=== PATIENT | male | born 1965 | race Caucasian/White ===

== ENCOUNTER 2016-12-02 07:55 | Emergency (ER) | payer OTHER, MEDICAID ==
[~2016-12-02] VITALS: Ht 162.6 cm; Wt 68.9 kg
[~2016-12-02 07:55] MED LIST: ACET325T9 PO; AMLO5TAB2 PO; Acetaminophen RC; Amoxicillin/Potassium Clav FT; CHLO25TA4 PO; Enoxaparin Sodium SQ; FAMO-63 FT; FLUC100T7 FT; bp med
[2016-12-02 08:05] VITALS: BP 168/93
--- NOTE | 2016-12-02 08:18 | PHYS DOC ---
Past Medical History Past Medical History: Anxiety, Depression, Hypertension, Hepatitis, Other Additional Past Medical Histor: Cervical vertebra fracture, intracranial hemorrhage, zygomatic fracure. Past Surgical History: Cholecystectomy, Other Additional Past Surgical Histo: Gastrostomy 06/09 Alcohol Use: None Additional Information: Pt denies alcohol Drug Use: Marijuana Adult General Chief Complaint Chief Complaint: SHORTNESS OF BREATH HPI HPI 51 year-old male who's had some shortness of breath for the last 4-5 days and a cough for the last 3-4 weeks. He denies any chest pain whatsoever with his symptoms. He does state he is significantly congested. He has possible history of hypertension and is on medications for this. He denies any other significant health problems. He states he smokes and occasional marijuana joint but no other drug use. He denies any tobacco use. Patient is speaking in complete sentences and in no acute distress and he saturates at 99% on room air. Review of Systems Review of Systems Constitutional: Denies fever or chills [] Eyes: Denies change in visual acuity, redness, or eye pain [] HENT: Denies nasal congestion or sore throat [] Respiratory: Has cough, has shortness of breath [] Cardiovascular: No additional information not addressed in HPI [] GI: Denies abdominal pain, nausea, vomiting, bloody stools or diarrhea [] : Denies dysuria or hematuria [] Musculoskeletal: Denies back pain or joint pain [] Integument: Denies rash or skin lesions [] Neurologic: Denies headache, focal weakness or sensory changes [] Endocrine: Denies polyuria or polydipsia [] Current Medications Current Medications Current Medications Medications (Trade) Dose Ordered Sig/[facility] Start Time Stop Time Status Last Admin Dose Admin Albuterol/ Ipratropium (Duoneb) 3 ml 1X ONCE 12/02/16 08:30 12/02/16 08:31 12/02/16 08:23 3 ML Allergies Allergies Allergies Coded Allergies Type Severity Reaction Last Updated Verified No Known Drug Allergies 02/17/16 No Physical Exam Physical Exam Constitutional: Well developed, well nourished, no acute distress, non-toxic appearance. [] HENT: Normocephalic, atraumatic, bilateral external ears normal, oropharynx moist, no oral exudates, nose normal. [] Eyes: PERRLA, EOMI, conjunctiva normal, no discharge. [] Neck: Normal range of motion, no tenderness, supple, no stridor. [] Cardiovascular:Heart rate regular rhythm, no murmur [] Lungs & Thorax: Bilateral breath sounds clear to auscultation [] Abdomen: Bowel sounds normal, soft, no tenderness, no masses, no pulsatile masses. [] Skin: Warm, dry, no erythema, no rash. [] Back: No tenderness, no CVA tenderness. [] Extremities: No tenderness, no cyanosis, no clubbing, ROM intact, no edema. [] Neurologic: Alert and oriented X 3, normal motor function, normal sensory function, no focal deficits noted. [] Psychologic: Affect normal, judgement normal, mood normal. [] Current Patient Data Vital Signs Vital Signs Date Time Temp Pulse Resp B/P Pulse Ox O2 Delivery O2 Flow Rate FiO2 12/02/16 08:05 97.6 75 20 168/93 99 Room Air 97.6 EKG EKG [] Radiology/Procedures Radiology/Procedures Portable one view of the chest as interpreted by me did not reveal any acute cardiopulmonary process. Course & Med Decision Making Course & Med Decision Making Pertinent Labs and Imaging studies reviewed. (See chart for details) This 51-year-old male with some subjective complaints of shortness of breath that is worse with walking and a cough has been there for the last 3-4 weeks will have a chest film and a breathing treatment. His symptoms seem atypical for cardiac disease. Denies any indication at this time to perform laboratory workup. If he does not desaturate with ambulation and has a normal chest film, I 'll be signing him home with an albuterol inhaler and close follow-up. Portable view of his chest is negative. Patient was successfully ambulated of department and was saturating at 96% while speaking in complete sentences throughout his ambulation. I'll be discharging him home with a course of albuterol inhaler and Teskin Bowles to follow closely with Dr. Todd in the next several days for his congestion Dragon Disclaimer Dragon Disclaimer This electronic medical record was generated, in whole or in part, using a voice recognition dictation system. Departure Departure Impression: Primary Impression: Cough Additional Impression: Congestion of throat Disposition: HOME, SELF-CARE Admitting Physician: Other Condition: STABLE Referrals: IRENA TODD MD (PCP) Patient Instructions: Cough, Adult, [id number] Additional Instructions: Please follow-up with your primary doctor in the next several days. Use your medications as prescribed. Return to the ER if you develop any worsening of your symptoms. Scripts Benzonatate (Tessalon Perle)100 Mg [id number] Mg PO TID PRN COUGH #15 CAP Prov:MARRY CISNEROS DO 12/02/16 Albuterol Sulfate (Proair Hfa Inhaler)8.5 Gm [id number] Puff INH PRN Q6HRS PRN SHORTNESS OF BREATH #1 INHALER Ref 0 Prov:MARRY CISNEROS DO 12/02/16 Problem Qualifiers MARRY CISNEROS DO Dec 02, 2016 08:18
--- NOTE | 2016-12-02 08:29 | RAD ---
Portable chest, 12/02/2016: History: Shortness of breath Comparison is made to a study from 06/26/2015. The heart size and pulmonary vascularity are normal. No pulmonary infiltrates are seen. There is no evidence of pleural fluid. Mild spurring is present in the spine. IMPRESSION: No acute cardiopulmonary abnormality is detected.
[2016-12-02] MEDS ORDERED: IPRATRPIUM/ALBUTEROL 0.5/2.5MG 3 ML NEBU. NEB ONE (08:30)
[2016-12-02] MEDS ORDERED: PROAIR HFA8.5 GM INH (08:31)
[2016-12-02] MEDS ORDERED: BENZ100C PO (08:31)
== END 2016-12-02 08:55 | disposition home or self-care (01) ==
LOC: ER 07:55
DX: R05 Cough (principal); R09.89 Other specified symptoms and signs involving the circulatory and respiratory systems; R06.02 Shortness of breath; F17.200 Nicotine dependence, unspecified, uncomplicated; F12.10 Cannabis abuse, uncomplicated; F41.9 Anxiety disorder, unspecified; F32.9 Major depressive disorder, single episode, unspecified; I10 Essential (primary) hypertension; Z86.19 Personal history of other infectious and parasitic diseases
CPT/HCPCS: 71010; 94250; 94640; 94760; 99283; J7620

== ENCOUNTER 2017-01-12 09:22 | Emergency (ER) | payer OTHER, MEDICAID ==
[~2017-01-12] VITALS: Ht 162.6 cm; Wt 68.0 kg
[~2017-01-12 09:22] MED LIST changes: +BENZ100C PO; +PROAIR HFA8.5 GM INH
[2017-01-12 10:05] LABS: BASO # 0.1 x10^3/uL (0.0-0.2); BASO % 1 % (0-3); EOS % 4 % (0-3); HEMOGLOBIN 15.8 g/dL (13.0-17.5); LYMPH # 2.8 x10^3/uL (1.0-4.8); LYMPH % 34 % (24-48); MEAN CORPUSCULAR HEMOGLOBIN 31 pg (25-35); MEAN CORPUSCULAR HGB CONC 35 g/dL (31-37); MEAN CORPUSCULAR VOLUME 88 fL (79-100); MONO % 7 % (0-9); NEUT % 53 % (31-73); PLATELET COUNT 236 x10^3/uL (140-400); RED BLOOD COUNT 5.11 x10^6/uL (4.30-5.70)
--- NOTE | 2017-01-12 10:09 | PHYS DOC ---
Past Medical History Past Medical History: Anxiety, Depression, Hypertension, Hepatitis, Other Additional Past Medical Histor: Cervical vertebra fracture, intracranial hemorrhage,zygomatic fracure,HEP C Past Surgical History: Cholecystectomy, Other Additional Past Surgical Histo: Gastrostomy 06/09 Alcohol Use: None Drug Use: Marijuana Adult General Chief Complaint Chief Complaint: SHORTNESS OF BREATH HPI HPI Patient is a 51 year old male who presents with dyspnea worsening over the past 3 months. States this has been constant and gradually worsening. Mentions he has slight fatigue and slight headache as well. Headache is mild, bilateral, achy, gradual onset, similar to prior headaches. She denies chest pain, palpitations, diaphoresis, orthopnea, leg pain or swelling, hemoptysis, rhinorrhea, nasal congestion, fever or chills, back pain. He sometimes uses albuterol inhaler and does not feel he gets significant relief. Review of Systems Review of Systems Constitutional: Denies fever or chills [] Eyes: Denies change in visual acuity, redness, or eye pain [] HENT: Denies nasal congestion or sore throat [] Respiratory: Denies cough [] Cardiovascular: No additional information not addressed in HPI [] GI: Denies abdominal pain, nausea, vomiting, bloody stools or diarrhea [] : Denies dysuria or hematuria [] Musculoskeletal: Denies back pain or joint pain [] Integument: Denies rash or skin lesions [] Neurologic: Denies headache, focal weakness or sensory changes [] Endocrine: Denies polyuria or polydipsia [] Current Medications Current Medications Current Medications Medications (Trade) Dose Ordered Sig/[facility] Start Time Stop Time Status Last Admin Dose Admin Acetaminophen (Tylenol) 500 mg 1X ONCE 01/12/17 10:15 01/12/17 10:16 DC Albuterol/ Ipratropium (Duoneb) 3 ml 1X ONCE 01/12/17 10:15 01/12/17 10:16 DC 01/12/17 10:17 3 ML Allergies Allergies Allergies Coded Allergies Type Severity Reaction Last Updated Verified No Known Drug Allergies 02/17/16 No Physical Exam Physical Exam Constitutional: Well developed, well nourished, no acute distress, non-toxic appearance. [] HENT: Normocephalic, atraumatic, bilateral external ears normal, oropharynx moist, no oral exudates, nose normal. [] Eyes: PERRLA, EOMI, conjunctiva normal, no discharge. [] Neck: Normal range of motion, no tenderness, supple, no stridor. [] Cardiovascular:Heart rate regular rhythm [] Lungs & Thorax: Bilateral breath sounds clear to auscultation. Tachypnea [] Abdomen: Bowel sounds normal, soft, no tenderness. [] Skin: Warm, dry, no erythema, no rash. [] Back: Normal range of motion. [] Extremities: No tenderness, ROM intact, no edema. [] Neurologic: Alert and oriented X 3, normal motor function, normal sensory function, no focal deficits noted. [] Psychologic: Affect normal, judgement normal, mood normal. [] Current Patient Data Vital Signs Vital Signs Date Time Temp Pulse Resp B/P Pulse Ox O2 Delivery O2 Flow Rate FiO2 01/12/17 10:20 97 Room Air 01/12/17 09:25 96.1 68 28 146/91 96.1 Lab Values Laboratory Tests Test 01/12/17 10:00 White Blood Count 8.0x10^3/uL (4.0-11.0) Red Blood Count 5.11x10^6/uL (4.30-5.70) Hemoglobin 15.8g/dL (13.0-17.5) Hematocrit 45.0% (39.0-53.0) Mean Corpuscular Volume 88fL (79-100) Mean Corpuscular Hemoglobin 31pg (25-35) Mean Corpuscular Hemoglobin Concent 35g/dL (31-37) Red Cell Distribution Width 13.0% (11.5-14.5) Platelet Count 236x10^3/uL (140-400) Neutrophils (%) (Auto) 53% (31-73) Lymphocytes (%) (Auto) 34% (24-48) Monocytes (%) (Auto) 7% (0-9) Eosinophils (%) (Auto) 4% (0-3) H Basophils (%) (Auto) 1% (0-3) Neutrophils # (Auto) 4.3x10^3uL (1.8-7.7) Lymphocytes # (Auto) 2.8x10^3/uL (1.0-4.8) Monocytes # (Auto) 0.6x10^3/uL (0.0-1.1) Eosinophils # (Auto) 0.3x10^3/uL (0.0-0.7) Basophils # (Auto) 0.1x10^3/uL (0.0-0.2) D-Dimer (Verónica) 0.27ug/mlFEU (0.00-0.50) Sodium Level 140mmol/L (136-145) Potassium Level 3.7mmol/L (3.5-5.1) Chloride Level 105mmol/L (98-107) Carbon Dioxide Level 23mmol/L (21-32) Anion Gap 12 (6-14) Blood Urea Nitrogen 14mg/dL (8-26) Creatinine 1.1mg/dL (0.7-1.3) Estimated GFR (Cockcroft-Gault) 70.9 Glucose Level 109mg/dL (70-99) H Calcium Level 9.5mg/dL (8.5-10.1) Troponin I Quantitative < 0.017ng/mL (0.000-0.055) SO-Wog-Z-Type Natriuretic Peptide 24pg/mL (0-124) Laboratory Tests 01/12/17 10:00 Laboratory Tests 01/12/17 10:00 EKG EKG EKG as interpreted by me as normal sinus rhythm, rate 67, no ST-T changes, normal intervals, no ectopy Course & Med Decision Making Course & Med Decision Making Pertinent Labs and Imaging studies reviewed. (See chart for details) I discussed case with his primary care doctor, Dr. Todd, who states he has been treating him for likely COPD; states he has not had a reaction stress test or PFTs as outpatient. His workup is unremarkable here. He is feeling better after neb and currently has normal work of breathing. Will place on steroid taper; he currently has enough albuterol inhaler. Return precautions given. He understands and agrees with plan. Dragon Disclaimer Dragon Disclaimer This electronic medical record was generated, in whole or in part, using a voice recognition dictation system. Departure Departure Impression: Primary Impression: Dyspnea Disposition: 01 HOME, SELF-CARE Condition: STABLE Referrals: IRENA TODD MD (PCP) Patient Instructions: Chronic Obstructive Pulmonary Disease, [id number] Additional Instructions: Your symptoms are concerning for chronic obstructive pulmonary disease, also known as COPD. Continue using albuterol inhaler as needed for difficulty breathing. Take prednisone as prescribed. Follow-up with your primary care doctor within one week. Please call for appointment. Return for any concerns. Scripts Prednisone 10 Mg [id number] Mg PO DAILY #30 TAB Take 50 mg (5 pills) daily for 2 days, then take 40 mg (4 pills) daily for 2 days, then take 30 mg (3 pills) daily for 2 days, then take 20 mg (2 pills) daily for 2 days, then take 10 mg for 2 days. Prov:Silvina FIELDS MD 01/12/17 Problem Qualifiers Primary Impression: Dyspnea Dyspnea type: shortness of breath Qualified Code: R06.02 - Shortness of breath Silvina FIELDS MD Jan 12, 2017 10:09
--- NOTE | 2017-01-12 10:12 | EKG ---
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
[2017-01-12 10:14] LABS: CALCIUM 9.5 mg/dL (8.5-10.1); CREATININE 1.1 mg/dL (0.7-1.3); GFR 70.9; POTASSIUM 3.7 mmol/L (3.5-5.1)
[2017-01-12] MEDS ORDERED: IPRATRPIUM/ALBUTEROL 0.5/2.5MG 3 ML NEBU. NEB ONE (10:15)
[2017-01-12] MEDS ORDERED: ACETAMINOPHEN 500 MG TABLET PO ONE (10:15)
--- NOTE | 2017-01-12 10:18 | RAD ---
Indication shortness of air. Hypertension. PA and lateral views of the chest were obtained. Comparison is made to an examination 12/02/2016. The heart and pulmonary vessels appear normal. The lungs are clear. A significant change in the appearance of the chest compared to the previous exam is not seen. IMPRESSION: No acute or focal process. No significant change
[2017-01-12 10:30] VITALS: BP 151/73
[2017-01-12] MEDS ORDERED: PRED-220 PO (10:45)
== END 2017-01-12 10:54 | disposition home or self-care (01) ==
LOC: ER 09:22
DX: R06.02 Shortness of breath (principal); R51 Headache; R53.83 Other fatigue; F41.9 Anxiety disorder, unspecified; F32.9 Major depressive disorder, single episode, unspecified; I10 Essential (primary) hypertension; F12.10 Cannabis abuse, uncomplicated; Z86.19 Personal history of other infectious and parasitic diseases; Z79.899 Other long term (current) drug therapy
CPT/HCPCS: 36415; 71020; 80048; 83880; 84484; 85027; 85379; 93005; 94250; 94640; 99285; J7620

== ENCOUNTER 2017-03-08 16:34 | Emergency (ER) | payer OTHER, MEDICAID ==
[~2017-03-08] VITALS: Ht 162.6 cm; Wt 72.6 kg
[~2017-03-08 16:34] MED LIST changes: +PRED-220 PO
[2017-03-08 16:48] VITALS: BP 131/83
--- NOTE | 2017-03-08 17:13 | RAD ---
Three-view right foot radiographs 03/08/2017 Clinical history: Door fell on right foot. Right foot pain. AP, lateral and oblique digital radiographs of the right foot were obtained. Mild degenerative changes are seen involving the first MTP joint and scattered throughout the interphalangeal joints of the right foot. No fracture or dislocation of the right foot is seen. Mild enthesophyte formation is seen involving the posterior aspect of the right calcaneus. Impression: No fracture or dislocation of the right foot is seen.
--- NOTE | 2017-03-08 17:53 | PHYS DOC ---
Past Medical History Past Medical History: Anxiety, Depression, Hypertension, Hepatitis, Other Additional Past Medical Histor: Cervical vertebra fracture,intracranial hemorrhage,zygomatic fracture,HEPC Past Surgical History: Cholecystectomy, Other Additional Past Surgical Histo: Gastrostomy 06/09 Alcohol Use: None Drug Use: Marijuana Adult General Chief Complaint Chief Complaint: FOOT INJURY PAIN HPI HPI Patient is a 51 year old male presents to the emergency Department stating around 4 to 4:30 he dropped a metal door on his right foot. He is having pain over the metatarsal areas. He does have an abrasion noted. He is able to move his toes does state he has increased pain and discomfort. He states he is unable to walk on the foot. He has not taken anything for pain and discomfort. No bruising or discoloration noted. Review of Systems Review of Systems Constitutional: Denies fever or chills [] Eyes: Denies change in visual acuity, redness, or eye pain [] HENT: Denies nasal congestion or sore throat [] Respiratory: Denies cough or shortness of breath [] Cardiovascular: No additional information not addressed in HPI [] GI: Denies abdominal pain, nausea, vomiting, bloody stools or diarrhea [] : Denies dysuria or hematuria [] Musculoskeletal: Denies back pain. Right foot pain Integument: Denies rash or skin lesions [] Neurologic: Denies headache, focal weakness or sensory changes [] Endocrine: Denies polyuria or polydipsia [] Current Medications Current Medications Current Medications Medications (Trade) Dose Ordered Sig/[facility] Start Time Stop Time Status Last Admin Dose Admin Diphtheria/ Tetanus/Acell Pertussis (Boostrix) 0.5 ml ONCE ONCE 03/08/17 18:00 03/08/17 18:01 Ibuprofen (Motrin) 800 mg 1X ONCE 03/08/17 18:00 03/08/17 18:01 Allergies Allergies Allergies Coded Allergies Type Severity Reaction Last Updated Verified No Known Drug Allergies 02/17/16 No Physical Exam Physical Exam Constitutional: Well developed, well nourished, no acute distress, non-toxic appearance. [] HENT: Normocephalic, atraumatic, bilateral external ears normal, oropharynx moist, no oral exudates, nose normal. [] Eyes: PERRLA, EOMI, conjunctiva normal, no discharge. [] Neck: Normal range of motion, no tenderness, supple, no stridor. [] Cardiovascular:Heart rate regular rhythm, no murmur [] Lungs & Thorax: Bilateral breath sounds clear to auscultation [] Abdomen: Bowel sounds normal, soft, no tenderness, no masses, no pulsatile masses. [] Skin: Warm, dry, no erythema, no rash. [] Back: No tenderness, no CVA tenderness. [] Extremities: No tenderness, no cyanosis, no clubbing, ROM intact, no edema. [] Neurologic: Alert and oriented X 3, normal motor function, normal sensory function, no focal deficits noted. [] Psychologic: Affect normal, judgement normal, mood normal. [] Current Patient Data Vital Signs Vital Signs Date Time Temp Pulse Resp B/P (MAP) Pulse Ox O2 Delivery O2 Flow Rate FiO2 03/08/17 16:48 97.8 87 16 97 Room Air 97.8 EKG EKG [] Radiology/Procedures Radiology/Procedures [][facility] [address] [place] [address] IMAGING REPORT Signed PATIENT: KILO LARSON ACCOUNT: [id number] : 1965 LOCATION: ER AGE: 51 SEX: M EXAM STATUS: REG ER ORD. PHYSICIAN: KING HARRISON APRN REASON: pain and discomfort with injury PROCEDURE: FOOT RIGHT 3V Three-view right foot radiographs 03/08/2017 Clinical history: Door fell on right foot. Right foot pain. AP, lateral and oblique digital radiographs of the right foot were obtained. Mild degenerative changes are seen involving the first MTP joint and scattered throughout the interphalangeal joints of the right foot. No fracture or dislocation of the right foot is seen. Mild enthesophyte formation is seen involving the posterior aspect of the right calcaneus. Impression: No fracture or dislocation of the right foot is seen. DICTATED and SIGNED BY: JUDI ORTIZ MD DATE: 03/08/17 1226 CC: KING HARRISON APRN; IRENA RENE MD; NON,STAFF ~ Course & Med Decision Making Course & Med Decision Making Pertinent Labs and Imaging studies reviewed. (See chart for details) X-rays are negative for any bony abnormalities. Patient will be placed in Christofer wrap and placed in a postop shoe. Was recommended ice packs on 20 minutes off 20 minutes several times a day. Elevation as much as possible. Wear the Christofer wrap for the next 7-10 days. Wear the postop shoe for the next week. Patient was provided with orthopedic name and number to follow up with. He was also encouraged to keep the abrasion clean and dry and clean with soap and water and apply antibiotic ointment to the site. He will be updated with a tetanus immunization here in the emergency department he was provided with ibuprofen. Patient discharged home in stable condition signs symptoms to return back to emergency department provided. [] Dragon Disclaimer Dragon Disclaimer This electronic medical record was generated, in whole or in part, using a voice recognition dictation system. Departure Departure Impression: Primary Impression: Right foot pain Disposition: 01 HOME, SELF-CARE Condition: STABLE Referrals: IRENA RENE MD (PCP) Patient Instructions: Foot Contusion, [id number] Additional Instructions: Your x-rays were negative for any bony abnormalities. Wear the Christofer wrap for the next 7-10 days. Wear the stop shoe for the next 7-10 days as well. Ice packs on 20 minutes off 20 minutes several times a day. Elevation as much as possible. Tylenol or ibuprofen for pain and discomfort. Follow-up with orthopedic if pain continues. Return back to the emergency department sign symptoms of become worse. KING HARRISON APRN Mar 08, 2017 17:53
[2017-03-08] MEDS ORDERED: DIPHTH,PERTUSS(ACELL),TET TOX 0.5 ML DISP.SYRIN. VAX IM ONE (18:00)
[2017-03-08] MEDS ORDERED: IBUPROFEN 800 MG TABLET. PO ONE (18:00)
== END 2017-03-08 18:19 | disposition home or self-care (01) ==
LOC: ER 16:34
DX: S90.811A Abrasion, right foot, initial encounter (principal); F32.9 Major depressive disorder, single episode, unspecified; F41.9 Anxiety disorder, unspecified; I10 Essential (primary) hypertension; F12.10 Cannabis abuse, uncomplicated; Z90.49 Acquired absence of other specified parts of digestive tract; Z86.19 Personal history of other infectious and parasitic diseases; W22.8XXA Striking against or struck by other objects, initial encounter; Y93.89 Activity, other specified; Y92.89 Other specified places as the place of occurrence of the external cause; Y99.8 Other external cause status
CPT/HCPCS: 73630; 90471; 90715; 99284-25

== ENCOUNTER 2017-06-26 13:08 | Inpatient (IN) | payer OTHER, MEDICAID ==
[~2017-06-26] VITALS: Ht 162.6 cm; Wt 73.0 kg
--- NOTE | 2017-06-26 13:36 | EKG ---
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
[2017-06-26 13:39] LABS: BASO # 0.1 x10^3/uL (0.0-0.2); BASO % 1 % (0-3); EOS % 4 % (0-3); HEMATOCRIT 45.8 % (39.0-53.0); HEMOGLOBIN 15.4 g/dL (13.0-17.5); LYMPH # 2.4 x10^3/uL (1.0-4.8); LYMPH % 32 % (24-48); MEAN CORPUSCULAR HEMOGLOBIN 30 pg (25-35); MEAN CORPUSCULAR HGB CONC 34 g/dL (31-37); MEAN CORPUSCULAR VOLUME 91 fL (79-100); MONO % 8 % (0-9); NEUT % 55 % (31-73); PLATELET COUNT 240 x10^3/uL (140-400); RED BLOOD COUNT 5.06 x10^6/uL (4.30-5.70); RED CELL DISTRIBUTION WIDTH 13.1 % (11.5-14.5); WHITE BLOOD COUNT 7.7 x10^3/uL (4.0-11.0)
[2017-06-26 13:50] LABS: CALCIUM 9.5 mg/dL (8.5-10.1); CREATININE 0.9 mg/dL (0.7-1.3); GFR 89.3; POTASSIUM 3.9 mmol/L (3.5-5.1)
[2017-06-26 13:55] LABS: ALBUMIN 4.1 g/dL (3.4-5.0); ALBUMIN/GLOBULIN RATIO 1.3 (1.0-1.7); TOTAL BILIRUBIN 0.4 mg/dL (0.2-1.0); TOTAL PROTEIN 7.3 g/dL (6.4-8.2)
--- NOTE | 2017-06-26 13:58 | RAD ---
CHEST AP ONLY Clinical Indication: CP Comparison: Chest radiograph dated 01/12/2017 Findings: Low lung volume. No focal consolidation. Stable pulmonary vasculature. No pleural effusion or pneumothorax. Stable borderline cardiomegaly. The great vessels of the thorax are stable. No acute osseous abnormality. IMPRESSION: 1. No focal consolidation. 2. Stable borderline cardiomegaly.
[2017-06-26] MEDS ORDERED: KETOROLAC 15 MG/ML VIAL. IV ONE (15:45)
[2017-06-26] MEDS ORDERED: ONDANSETRON PF 4 MG/2 ML VIAL. IV ONE (15:45)
[2017-06-26] MEDS ORDERED: fentaNYL PF VIAL 100 MCG/2 ML VIAL IV ONE (15:45)
[2017-06-26] MEDS ORDERED: IOHEXOL 300 MG/ML 75 ML VIAL IV ONE (16:00)
[2017-06-26] MEDS ORDERED: CONTRAST GIVEN MC PRN (16:00)
--- NOTE | 2017-06-26 16:33 | PHYS DOC ---
Past Medical History Past Medical History: Anxiety, Depression, Hypertension, Hepatitis, Other Additional Past Medical Histor: Cervical vertebra fracture,intracranial hemorrhage,zygomatic fracture,HEPC Past Surgical History: Cholecystectomy, Other Additional Past Surgical Histo: Gastrostomy 06/09 Alcohol Use: None Drug Use: Marijuana Adult General Chief Complaint Chief Complaint: CHEST PAIN HPI HPI Patient is a 51 year old L who presents with right-sided chest pain starting 2 hours prior to ED arrival. Pain is described as sharp rated moderate. Pain is worse with deep breathing is associated with nausea. Patient denies sweats. Patient denies exertional chest pain. No leg pain or swelling. No fever, cough, sore throat, abdominal pain or back pain. No history of CAD, PE, AAA or dissection. History of peptic ulcer disease, I bleed. No prior abdominal surgeries.. Past medical history significant for hypertension and hepatitis C. Patient is a nonsmoker. No other acute symptoms or complaints. Patient's accompanied at bedside by spouse. Review of Systems Review of Systems Review of is symptoms as per history of present illness. All other review symptoms are negative. Current Medications Current Medications Current Medications Medications (Trade) Dose Ordered Sig/Rosalia Start Time Stop Time Status Last Admin Dose Admin Fentanyl Citrate (Fentanyl 2ml Vial) 50 mcg 1X ONCE 06/26/17 15:45 06/26/17 15:46 DC 06/26/17 15:50 50 MCG Heparin Sodium (Porcine) (Heparin Sodium) 950 unit PRN Q6HRS PRN 06/26/17 20:45 Heparin Sodium/ Dextrose 500 ml @ 0 mls/hr CONT PRN 06/26/17 20:45 06/26/17 21:30 20.3 MLS/HR Info (Do NOT chart on this entry -- for MONITORING) 1 each PRN DAILY PRN 06/26/17 16:00 06/28/17 15:59 Iohexol (Omnipaque 300 Mg/ml) 75 ml 1X ONCE 06/26/17 16:00 06/26/17 16:01 DC 06/26/17 16:03 75 ML Ketorolac Tromethamine (Toradol) 15 mg 1X ONCE 06/26/17 15:45 06/26/17 15:46 DC 06/26/17 15:50 15 MG Morphine Sulfate 2 mg PRN Q2HR PRN 06/26/17 19:45 06/27/17 19:44 06/26/17 21:19 2 MG Ondansetron HCl (Zofran) 4 mg PRN Q8HRS PRN 06/26/17 19:45 06/27/17 19:44 Sodium Chloride 1,000 ml @ 125 mls/hr Q8H 06/26/17 19:37 06/27/17 19:36 Warfarin Sodium (Coumadin Per Pharmacy) 1 each PRN DAILY PRN 06/26/17 20:45 UNV Allergies Allergies Allergies Coded Allergies Type Severity Reaction Last Updated Verified No Known Drug Allergies 02/17/16 No Physical Exam Physical Exam Constitutional: Well developed, well nourished, no acute distress, non-toxic appearance. [] HENT: Normocephalic, atraumatic, bilateral external ears normal, oropharynx moist, no oral exudates, nose normal. [] Eyes: PERRLA, EOMI, conjunctiva normal, no discharge. [] Neck: Normal range of motion, no tenderness, supple, no stridor. [] Cardiovascular:Heart rate regular rhythm, no murmur [] Lungs & Thorax: Bilateral breath sounds clear to auscultation [] Abdomen: Bowel sounds normal, soft. [] Skin: Warm, dry, no erythema, no rash. [] Back: No tenderness, no CVA tenderness. [] Extremities: No tenderness, no cyanosis, no clubbing, ROM intact, no edema. [] Neurologic: Alert and oriented X 3, normal motor function, normal sensory function, no focal deficits noted. [] Psychologic: Affect normal, judgement normal, mood normal. [] Current Patient Data Vital Signs Vital Signs Date Time Temp Pulse Resp B/P (MAP) Pulse Ox O2 Delivery O2 Flow Rate FiO2 06/26/17 21:19 18 97 Room Air 06/26/17 19:14 63 142/88 (106) 06/26/17 13:14 97.0 97.0 Lab Values Laboratory Tests Test 06/26/17 13:20 06/26/17 13:51 White Blood Count 7.7 x10^3/uL (4.0-11.0) Red Blood Count 5.06 x10^6/uL (4.30-5.70) Hemoglobin 15.4 g/dL (13.0-17.5) Hematocrit 45.8 % (39.0-53.0) Mean Corpuscular Volume 91 fL (79-100) Mean Corpuscular Hemoglobin 30 pg (25-35) Mean Corpuscular Hemoglobin Concent 34 g/dL (31-37) Red Cell Distribution Width 13.1 % (11.5-14.5) Platelet Count 240 x10^3/uL (140-400) Neutrophils (%) (Auto) 55 % (31-73) Lymphocytes (%) (Auto) 32 % (24-48) Monocytes (%) (Auto) 8 % (0-9) Eosinophils (%) (Auto) 4 % (0-3) H Basophils (%) (Auto) 1 % (0-3) Neutrophils # (Auto) 4.2 x10^3uL (1.8-7.7) Lymphocytes # (Auto) 2.4 x10^3/uL (1.0-4.8) Monocytes # (Auto) 0.6 x10^3/uL (0.0-1.1) Eosinophils # (Auto) 0.3 x10^3/uL (0.0-0.7) Basophils # (Auto) 0.1 x10^3/uL (0.0-0.2) Sodium Level 140 mmol/L (136-145) Potassium Level 3.9 mmol/L (3.5-5.1) Chloride Level 106 mmol/L (98-107) Carbon Dioxide Level 26 mmol/L (21-32) Anion Gap 8 (6-14) Blood Urea Nitrogen 12 mg/dL (8-26) Creatinine 0.9 mg/dL (0.7-1.3) Estimated GFR (Cockcroft-Gault) 89.3 BUN/Creatinine Ratio 13 (6-20) Glucose Level 103 mg/dL (70-99) H Calcium Level 9.5 mg/dL (8.5-10.1) Total Bilirubin 0.4 mg/dL (0.2-1.0) Aspartate Amino Transferase (AST) 31 U/L (15-37) Alanine Aminotransferase (ALT) 32 U/L (16-63) Alkaline Phosphatase 73 U/L (46-116) Total Protein 7.3 g/dL (6.4-8.2) Albumin 4.1 g/dL (3.4-5.0) Albumin/Globulin Ratio 1.3 (1.0-1.7) POC Troponin I 0.00 ng/ml (<0.08) Laboratory Tests 06/26/17 13:20 Laboratory Tests 06/26/17 13:20 EKG EKG [EKG: Sinus rhythm, rate 75, no acute ST-T wave changes, QTC 402.] Radiology/Procedures Radiology/Procedures [Chest Xray : No acute cardiopulmonary disease. CTA chest: Suspicion of Right lower lobe subsegmental pulmonary embolus ] Course & Med Decision Making Course & Med Decision Making Pertinent Labs and Imaging studies reviewed. (See chart for details) [Typical chest pain with negative cardiac workup. CTA suggestive of PE. Heparin initiated, Dr. Lozano to admit. Dr. Bermudez, consulted] Dragon Disclaimer Dragon Disclaimer This electronic medical record was generated, in whole or in part, using a voice recognition dictation system. Departure Departure Impression: Primary Impression: Chest pain Additional Impression: Pulmonary embolism Disposition: ADMITTED INPATIENT Admitting Physician: Irena Rene Condition: IMPROVED Referrals: IRENA RENE MD (PCP) Problem Qualifiers KIM GORDON DO Jun 26, 2017 16:33
--- NOTE | 2017-06-26 16:40 | RAD ---
CT chest aneurysm Indication: Chest pain, shortness of breath. Rule out PE. Technique: CT angiogram of chest with 75 mL of Omnipaque 300 with multi planar reformats. Sagittal and coronal mid constructions are performed. Comparison: None Findings: Suboptimal study due to breathing motion artifact. No filling defects in the proximal bilateral middle pulmonary arteries. Questionable filling defect seen within the branch of the pulmonary artery (series 3 image 73) supplying the right lower lobe. Poor opacification of the segmental branches of the right middle lobe. Heart is normal in size. No pericardial or pleural effusion. No axillary, mediastinal or hilar adenopathy. Evaluation of lungs limited due to breathing motion artifact. No areas of consolidation noted. No obvious pulmonary nodules or masses. Small sliding hiatal hernia. Visualized sections through the liver, spleen, pancreas, adrenals and kidneys are within normal limits. No suspicious bony lesions. Impression: Limited study due to breathing motion artifact. 1. Questionable subtle filling defect in the branch of the segmental pulmonary artery supplying the right lower lobe and right middle lobe may be artifactual secondary to breathing motion artifact or may represent small pulmonary embolism. No central or main pulmonary artery embolism. Nuclear medicine VQ scan may be obtained if clinically indicated. 2. No lung parenchymal abnormality to suggest pulmonary infarct or pneumonia. PQRS Compliance Statement: One or more of the following individualized dose reduction techniques were utilized for this examination: 1. Automated exposure control 2. Adjustment of the mA and/or kV according to patient size 3. Use of iterative reconstruction technique
[2017-06-26] MEDS ORDERED: ONDANSETRON PF 4 MG/2 ML VIAL. IV PRN (19:45)
[2017-06-26] MEDS ORDERED: HEPARIN for IV BOLUS 10,000 UNIT/10 ML VIAL. IV PRN ×2 (20:45)
[2017-06-26] MEDS: MORPHINE SULFATE 4 MG/ML DISP.SYRIN. IV PRN (21:19)
[2017-06-26] MEDS: HEPARIN 25,000UTS/500ML PREMIX 500 ML IV PRN (21:30)
[2017-06-26] MEDS ORDERED: WARFARIN 7.5 MG TABLET. PO ONE (22:30)
[2017-06-26 22:40] VITALS: BP 134/85
[2017-06-26 23:00] VITALS: BP 134/85
[2017-06-26] MEDS ORDERED: FAMO-63 PO (23:15)
[2017-06-26] MEDS ORDERED: NON FORMULARY ITEM (Albuterol Sulfate (Proair Hfa Inhaler) 1 PUFF) INH PRN (23:30)
[2017-06-26] MEDS ORDERED: ALBUTEROL SULFATE 2.5 MG/3 ML NEBU. NEB PRN (23:30)
[2017-06-26] MEDS: IV NORMAL SALINE 1000ML BAG 1,000 ML IV SCH (23:34)
[2017-06-27] VITALS (7 sets, daily range): BP systolic 98–146; BP diastolic 51–91
[2017-06-27] MEDS: ANTI-COAG MONITOR BY PHARMACY. MC PRN ×2 (02:05→14:10)
[2017-06-27 04:28] LABS: BASO # 0.1 x10^3/uL (0.0-0.2); BASO % 1 % (0-3); EOS % 6 % (0-3); HEMATOCRIT 42.8 % (39.0-53.0); HEMOGLOBIN 14.7 g/dL (13.0-17.5); LYMPH # 2.6 x10^3/uL (1.0-4.8); LYMPH % 36 % (24-48); MEAN CORPUSCULAR HEMOGLOBIN 31 pg (25-35); MEAN CORPUSCULAR HGB CONC 34 g/dL (31-37); MEAN CORPUSCULAR VOLUME 90 fL (79-100); MONO % 10 % (0-9); NEUT % 47 % (31-73); PLATELET COUNT 223 x10^3/uL (140-400); RED BLOOD COUNT 4.75 x10^6/uL (4.30-5.70); RED CELL DISTRIBUTION WIDTH 13.2 % (11.5-14.5); WHITE BLOOD COUNT 7.4 x10^3/uL (4.0-11.0)
[2017-06-27 04:38] LABS: ALBUMIN 3.4 g/dL (3.4-5.0); ALBUMIN/GLOBULIN RATIO 1.4 (1.0-1.7); CALCIUM 8.6 mg/dL (8.5-10.1); CREATININE 0.9 mg/dL (0.7-1.3); GFR 89.3; POTASSIUM 3.7 mmol/L (3.5-5.1); TOTAL BILIRUBIN 0.3 mg/dL (0.2-1.0); TOTAL PROTEIN 5.8 g/dL (6.4-8.2)
[2017-06-27 05:02] LABS: INR 1.1 (0.8-1.1); PROTHROMBIN TIME PATIENT 13.5 SEC (11.7-14.0)
[2017-06-27] MEDS: IV NORMAL SALINE 1000ML BAG 1,000 ML IV SCH ×2 (07:38→15:46)
[2017-06-27] MEDS: MORPHINE SULFATE 4 MG/ML DISP.SYRIN. IV PRN ×2 (08:19→18:38)
[2017-06-27] MEDS: FAMOTIDINE 20 MG TABLET. PO SCH ×2 (08:20→21:17)
[2017-06-27] MEDS: amLODIPine BESYLATE 5 MG TABLET PO SCH (09:00)
--- NOTE | 2017-06-27 13:05 | PDOC ---
Provider Note Provider Note Pt seen.H&P dictated. #[id number] IRENA RENE MD Jun 27, 2017 13:05
--- NOTE | 2017-06-27 13:55 | HP ---
ADMIT DATE: 06/26/2017 LOCATION: 512. ATTENDING PHYSICIAN: Dr. Todd. REASON FOR ADMISSION TO THE HOSPITAL: Right-sided chest pain, possible pulmonary embolism. HISTORY OF PRESENT ILLNESS: The patient is a 51-year-old white male patient known to me, has a history of hypertension, hepatitis and he also had history of mediastinitis in the past with esophageal microperforation in the past and he was having right-sided chest pain, came to the Emergency Room, had a CT angiogram of the chest, was suspicious for right-sided pulmonary embolism. The patient was admitted to the hospital and started on heparin drip. PAST MEDICAL HISTORY: History of hypertension, depression, also impaired hearing, hepatitis. PAST SURGICAL HISTORY: Vertebral fracture, gallbladder surgery. PERSONAL HISTORY: Occasionally uses marijuana. He used to drink alcohol in the past, used to smoke in the past, he stopped that. FAMILY HISTORY: Unremarkable. REVIEW OF SYMPTOMS: CARDIAC: Denies left-sided chest pain. GASTROINTESTINAL: No nausea or vomiting. Denies any cough or any sputum. Rest of the 14-system was reviewed and negative. PHYSICAL EXAMINATION: GENERAL: The patient is not in any distress. VITAL SIGNS: At the time of admission shows temperature 97, pulse 78, respirations 26, blood pressure 139/84, 98% on room air. HEENT: Head is atraumatic. Pupils are equal. Has a hearing aid. Oral cavity: No congestion. NECK: Supple. Thyroid not enlarged. CHEST: Symmetrical. CARDIOVASCULAR: S1, S2. LUNGS: Clear. ABDOMEN: Soft, nontender. Bowel sounds present, no mass palpable. EXTERNAL GENITALIA: No Mcmullen. RECTAL: Deferred. EXTREMITIES: No calf tenderness, no edema. Pulses 1+. NEUROLOGIC: No focal deficits noted. LABORATORY DATA: Shows a white count of 7, hemoglobin 15, platelets 240. Electrolytes show sodium 140, potassium 3.9, chloride 106, bicarbonate 26, BUN 12, creatinine 0.9, glucose 103. LFTs negative, normal. Troponin was negative. INR is 1.0. Chest x-ray negative. CT angiogram of the chest, which shows a possible filling defect right lower lobe and right middle lobe, may be pulmonary embolism. FINAL IMPRESSION: 1. Right-sided chest pain. CT angiogram, possible evidence of pulmonary embolism. 2. History of smoking. 3. Hypertension. PLAN: At this time was admit to the hospital, started on heparin drip. Pulmonary was consulted, also venous Doppler to rule out any DVTs in the legs and also look for hypercoagulable state. We will start heparin drip and also start on Coumadin to keep INR between 2 and 3. IRENA TODD MD DR: JULIO/jonathan JOB#: [id number] / [id number]
--- NOTE | 2017-06-27 14:10 | RAD ---
Ultrasound lower extremity venous Doppler Indication: Chest pain and shortness of breath. Right lower extremity cramping last week. No history of DVT, recent surgery or trauma. Technique: Grayscale, color Doppler and spectral waveform ultrasound images of the bilateral lower extremity deep venous Comparison: None Findings: The interrogated lower extremity deep veins are compressible and demonstrate evidence of blood flow with normal respiratory variation and response to augmentation. Impression: No sonographic evidence of acute DVT of the interrogated bilateral lower extremity deep veins.
[2017-06-27] MEDS ORDERED: WARFARIN 7.5 MG TABLET. PO ONE (16:00)
[2017-06-27] MEDS: HEPARIN 25,000UTS/500ML PREMIX 500 ML IV PRN ×2 (18:39→21:45)
--- NOTE | 2017-06-27 19:55 | PDOC ---
PULMONARY PROGRESS NOTES Vitals Vital Signs Date Time Temp Pulse Resp B/P (MAP) Pulse Ox O2 Delivery O2 Flow Rate FiO2 06/27/17 18:38 Room Air 06/27/17 15:10 98.1 62 18 130/51 (77) 98.1 06/27/17 14:30 94 Labs Laboratory Tests Test 06/26/17 13:20 06/26/17 13:51 06/27/17 03:55 06/27/17 07:40 White Blood Count 7.7 x10^3/uL (4.0-11.0) 7.4 x10^3/uL (4.0-11.0) Red Blood Count 5.06 x10^6/uL (4.30-5.70) 4.75 x10^6/uL (4.30-5.70) Hemoglobin 15.4 g/dL (13.0-17.5) 14.7 g/dL (13.0-17.5) Hematocrit 45.8 % (39.0-53.0) 42.8 % (39.0-53.0) Mean Corpuscular Volume 91 fL (79-100) 90 fL (79-100) Mean Corpuscular Hemoglobin 30 pg (25-35) 31 pg (25-35) Mean Corpuscular Hemoglobin Concent 34 g/dL (31-37) 34 g/dL (31-37) Red Cell Distribution Width 13.1 % (11.5-14.5) 13.2 % (11.5-14.5) Platelet Count 240 x10^3/uL (140-400) 223 x10^3/uL (140-400) Neutrophils (%) (Auto) 55 % (31-73) 47 % (31-73) Lymphocytes (%) (Auto) 32 % (24-48) 36 % (24-48) Monocytes (%) (Auto) 8 % (0-9) 10 % (0-9) Eosinophils (%) (Auto) 4 % (0-3) 6 % (0-3) Basophils (%) (Auto) 1 % (0-3) 1 % (0-3) Neutrophils # (Auto) 4.2 x10^3uL (1.8-7.7) 3.5 x10^3uL (1.8-7.7) Lymphocytes # (Auto) 2.4 x10^3/uL (1.0-4.8) 2.6 x10^3/uL (1.0-4.8) Monocytes # (Auto) 0.6 x10^3/uL (0.0-1.1) 0.7 x10^3/uL (0.0-1.1) Eosinophils # (Auto) 0.3 x10^3/uL (0.0-0.7) 0.5 x10^3/uL (0.0-0.7) Basophils # (Auto) 0.1 x10^3/uL (0.0-0.2) 0.1 x10^3/uL (0.0-0.2) Prothrombin Time 13.0 SEC (11.7-14.0) 13.5 SEC (11.7-14.0) Prothromb Time International Ratio 1.0 (0.8-1.1) 1.1 (0.8-1.1) Sodium Level 140 mmol/L (136-145) 141 mmol/L (136-145) Potassium Level 3.9 mmol/L (3.5-5.1) 3.7 mmol/L (3.5-5.1) Chloride Level 106 mmol/L (98-107) 107 mmol/L (98-107) Carbon Dioxide Level 26 mmol/L (21-32) 28 mmol/L (21-32) Anion Gap 8 (6-14) 6 (6-14) Blood Urea Nitrogen 12 mg/dL (8-26) 15 mg/dL (8-26) Creatinine 0.9 mg/dL (0.7-1.3) 0.9 mg/dL (0.7-1.3) Estimated GFR (Cockcroft-Gault) 89.3 89.3 BUN/Creatinine Ratio 13 (6-20) 17 (6-20) Glucose Level 103 mg/dL (70-99) 92 mg/dL (70-99) Calcium Level 9.5 mg/dL (8.5-10.1) 8.6 mg/dL (8.5-10.1) Total Bilirubin 0.4 mg/dL (0.2-1.0) 0.3 mg/dL (0.2-1.0) Aspartate Amino Transf (AST/SGOT) 31 U/L (15-37) 22 U/L (15-37) Alanine Aminotransferase (ALT/SGPT) 32 U/L (16-63) 28 U/L (16-63) Alkaline Phosphatase 73 U/L (46-116) 67 U/L (46-116) Total Protein 7.3 g/dL (6.4-8.2) 5.8 g/dL (6.4-8.2) Albumin 4.1 g/dL (3.4-5.0) 3.4 g/dL (3.4-5.0) Albumin/Globulin Ratio 1.3 (1.0-1.7) 1.4 (1.0-1.7) Bedside Troponin I 0.00 ng/ml (<0.08) Heparin Anti-Xa Act, Unfractionated 0.33 IU/mL (0.30-0.70) Troponin I Quantitative < 0.017 ng/mL (0.000-0.055) < 0.017 ng/mL (0.000-0.055) Test 06/27/17 09:45 Heparin Anti-Xa Act, Unfractionated 0.47 IU/mL (0.30-0.70) Laboratory Tests Test 06/27/17 03:55 06/27/17 07:40 06/27/17 09:45 White Blood Count 7.4 x10^3/uL (4.0-11.0) Red Blood Count 4.75 x10^6/uL (4.30-5.70) Hemoglobin 14.7 g/dL (13.0-17.5) Hematocrit 42.8 % (39.0-53.0) Mean Corpuscular Volume 90 fL (79-100) Mean Corpuscular Hemoglobin 31 pg (25-35) Mean Corpuscular Hemoglobin Concent 34 g/dL (31-37) Red Cell Distribution Width 13.2 % (11.5-14.5) Platelet Count 223 x10^3/uL (140-400) Neutrophils (%) (Auto) 47 % (31-73) Lymphocytes (%) (Auto) 36 % (24-48) Monocytes (%) (Auto) 10 % (0-9) Eosinophils (%) (Auto) 6 % (0-3) Basophils (%) (Auto) 1 % (0-3) Neutrophils # (Auto) 3.5 x10^3uL (1.8-7.7) Lymphocytes # (Auto) 2.6 x10^3/uL (1.0-4.8) Monocytes # (Auto) 0.7 x10^3/uL (0.0-1.1) Eosinophils # (Auto) 0.5 x10^3/uL (0.0-0.7) Basophils # (Auto) 0.1 x10^3/uL (0.0-0.2) Prothrombin Time 13.5 SEC (11.7-14.0) Prothromb Time International Ratio 1.1 (0.8-1.1) Heparin Anti-Xa Act, Unfractionated 0.33 IU/mL (0.30-0.70) 0.47 IU/mL (0.30-0.70) Sodium Level 141 mmol/L (136-145) Potassium Level 3.7 mmol/L (3.5-5.1) Chloride Level 107 mmol/L (98-107) Carbon Dioxide Level 28 mmol/L (21-32) Anion Gap 6 (6-14) Blood Urea Nitrogen 15 mg/dL (8-26) Creatinine 0.9 mg/dL (0.7-1.3) Estimated GFR (Cockcroft-Gault) 89.3 BUN/Creatinine Ratio 17 (6-20) Glucose Level 92 mg/dL (70-99) Calcium Level 8.6 mg/dL (8.5-10.1) Total Bilirubin 0.3 mg/dL (0.2-1.0) Aspartate Amino Transf (AST/SGOT) 22 U/L (15-37) Alanine Aminotransferase (ALT/SGPT) 28 U/L (16-63) Alkaline Phosphatase 67 U/L (46-116) Troponin I Quantitative < 0.017 ng/mL (0.000-0.055) < 0.017 ng/mL (0.000-0.055) Total Protein 5.8 g/dL (6.4-8.2) Albumin 3.4 g/dL (3.4-5.0) Albumin/Globulin Ratio 1.4 (1.0-1.7) Medications Active Scripts Medications Dose Route/Sig Max Daily Dose Days Date Category Pepcid (Famotidine) 20 Mg Tablet 20 Mg PO BID 06/26/17 Reported Proair Hfa Inhaler (Albuterol Sulfate) 8.5 Gm Hfa.aer.ad 1 Puff INH PRN Q6HRS PRN 12/02/16 Rx Amlodipine Besylate 5 Mg Tablet 5 Mg PO DAILY 11/30/15 Reported Impression . POSSIBLE PE CLINICAL PRESENTATION IS LOW TO MOD WILL CHECK A V/Q SCAN THANKS MY HUITRON MD Jun 27, 2017 19:55
--- NOTE | 2017-06-28 00:23 | CONS ---
DATE OF CONSULTATION: 06/27/2017 ATTENDING PHYSICIAN: Dr. Todd. REASON FOR CONSULTATION: The patient is seen in pulmonary consultation at the request of Dr. Todd for abnormal CT of the chest revealing possible PE. HISTORY OF PRESENT ILLNESS: The patient is a 59-year-old male that presented with increasing shortness of breath and acute onset of chest pain. The patient had a workup including CT chest. CT was personally reviewed. There is a questionable defect in the branch of the segmental pulmonary artery on the right side, right lower lobe. He had venous Dopplers, which were negative. There is no prior history of DVT or pulmonary embolism. The patient is very active. His chest discomfort was mostly in the right upper chest area. There is no family history of thrombophilia. He denies wheezing, no syncope or near syncopal episodes. PAST MEDICAL HISTORY: Hypertension, depression, impaired hearing, hepatitis. PAST SURGICAL HISTORY: Status post vertebral fracture, cholecystectomy. SOCIAL HISTORY: Occasional use of marijuana. Denies any alcohol, used to smoke tobacco in the past. FAMILY HISTORY: No family history of thrombophilia. REVIEW OF SYSTEMS: As indicated above, otherwise, a 10-point system was reviewed and negative. CURRENT MEDICATIONS: List was reviewed. He is on IV heparin. ALLERGIES: No known drug allergies. PHYSICAL EXAMINATION: GENERAL: The patient was in no respiratory distress on room air saturation 94-95%. HEENT: Eyes, the sclerae were nonicteric. NECK: Jugular venous distention was not elevated. No lymphadenopathy. CHEST: Full expansion. LUNGS: Adequate airway flow with no wheezes. CARDIOVASCULAR: Regular rate and rhythm with S1, S2, no S3. ABDOMEN: Soft, nontender, nondistended. EXTREMITIES: No clubbing, cyanosis or edema. NEUROLOGIC: The patient was awake, alert, following commands. A detailed neuro exam was not performed. LABORATORY DATA: Labs were reviewed. Troponin was normal. White count was normal. CT as indicated above. IMPRESSION: 1. CT angiogram reviewed with possible thrombus in the right lower pulmonary artery. 2. My clinical suspicion for pulmonary embolism is low to moderate. 3. History of tobacco use. 4. Hypertension. PLAN: 1. I recommended prior to committing the patient to long-term anticoagulation, we will proceed with a V/Q scan. 2. Venous Dopplers were obtained, which were negative. 3. Continue current anticoagulation for now. I do appreciate the privilege in sharing in the patient's care. MY HUITRON MD DR: PA/jonathan JOB#: [id number] / [id number]
[2017-06-28 03:00] VITALS: BP 113/69
[2017-06-28 05:03] LABS: HEMATOCRIT 45.5 % (39.0-53.0); HEMOGLOBIN 14.9 g/dL (13.0-17.5); RED BLOOD COUNT 4.95 x10^6/uL (4.30-5.70); RED CELL DISTRIBUTION WIDTH 13.1 % (11.5-14.5); WHITE BLOOD COUNT 7.3 x10^3/uL (4.0-11.0)
[2017-06-28 05:13] LABS: INR 1.2 (0.8-1.1); PROTHROMBIN TIME PATIENT 14.5 SEC (11.7-14.0)
[2017-06-28 07:00] VITALS: BP 154/81
[2017-06-28] MEDS: ACETAMINOPHEN 325 MG TABLET. PO PRN (08:28)
[2017-06-28] MEDS: FAMOTIDINE 20 MG TABLET. PO SCH ×2 (08:28→20:44)
[2017-06-28] MEDS: amLODIPine BESYLATE 5 MG TABLET PO SCH (08:29)
--- NOTE | 2017-06-28 09:42 | PDOC ---
PROGRESS NOTES Subjective Subjective had some rt sided chest wall pain Objective Objective Vital Signs Date Time Temp Pulse Resp B/P (MAP) Pulse Ox O2 Delivery O2 Flow Rate FiO2 06/28/17 08:29 64 154/81 06/28/17 08:16 98 Room Air 06/28/17 07:00 97.7 18 97.7 Physical Exam Abdomen: Normal bowel sounds, Soft Heart: Regular rate, Normal S1, Normal S2 Extremities: No clubbing General: Alert HEENT: Atraumatic Lungs: Clear to auscultation MUSCULOSKELETAL: No deformity, No swelling Neck: Supple Neuro: Normal speech Psych/Mental Status: Mental status NL Skin: No breakdown Diagnosis Problem List Problems Medical Problems: (1) Chest pain Status: Acute (2) Pulmonary embolism Status: Acute Assessment Assessment Problems Medical Problems: (1) Chest pain Status: Acute (2) Pulmonary embolism Status: Acute FINAL IMPRESSION: 1. Right-sided chest pain. CT angiogram, possible evidence of pulmonary embolism. 2. History of smoking. 3. Hypertension. PLAN: VQ scan today venous Doppler legs- neg for DVT. on iv heparin. appreciate pulmonary consult. At this time was admit to the hospital, started on heparin drip. Pulmonary was consulted, also venous Doppler to rule out any DVTs in the legs and also look for hypercoagulable state. We will start heparin drip and also start on Coumadin to keep INR between 2 and 3. Problems: Plan Plan of Care Problems Medical Problems: (1) Chest pain Status: Acute (2) Pulmonary embolism Status: Acute Comment Review of Relevant I have reviewed the following items karthikeyan (where applicable) has been applied. Labs Laboratory Tests Test 06/27/17 09:45 06/28/17 04:35 Heparin Anti-Xa Act, Unfractionated 0.47 IU/mL (0.30-0.70) 0.38 IU/mL (0.30-0.70) White Blood Count 7.3 x10^3/uL (4.0-11.0) Red Blood Count 4.95 x10^6/uL (4.30-5.70) Hemoglobin 14.9 g/dL (13.0-17.5) Hematocrit 45.5 % (39.0-53.0) Mean Corpuscular Volume 92 fL (79-100) Mean Corpuscular Hemoglobin 30 pg (25-35) Mean Corpuscular Hemoglobin Concent 33 g/dL (31-37) Red Cell Distribution Width 13.1 % (11.5-14.5) Platelet Count 206 x10^3/uL (140-400) Prothrombin Time 14.5 SEC (11.7-14.0) Prothromb Time International Ratio 1.2 (0.8-1.1) Medications Current Medications Acetaminophen (Tylenol) 650 mg PRN Q6HRS PRN PO PAIN Last administered on 08:28; Start 06/28/17 at 08:30 Warfarin Sodium (Coumadin Per Pharmacy) 1 each PRN DAILY PRN MC SEE COMMENTS; Start 06/27/17 at 13:00; Stop 06/27/17 at 13:15; Status DC Warfarin Sodium (Coumadin) 7.5 mg 1X WARF ONCE PO Last administered on 15:47; Start 06/27/17 at 16:00; Stop 06/27/17 at 16:01; Status DC Vitals/I & O Vital Sign - Last 24 Hours 06/27/17 06/27/17 06/27/17 06/27/17 10:30 11:01 14:30 15:10 Temp 97.9 97.9 98.1 97.9 97.9 98.1 Pulse 62 69 62 Resp 18 18 18 B/P (MAP) 106/67 (80) 139/75 (96) 130/51 (77) Pulse Ox 95 94 O2 Delivery Room Air Room Air Room Air Room Air 06/27/17 06/27/17 06/27/17 06/27/17 18:38 19:00 20:00 23:06 Temp 97.9 97.9 97.9 97.9 Pulse 66 59 Resp 17 16 B/P (MAP) 146/91 (109) 125/73 (90) Pulse Ox 94 96 O2 Delivery Room Air Room Air Room Air Room Air 06/28/17 06/28/17 06/28/17 06/28/17 03:00 07:00 08:16 08:29 Temp 98.1 97.7 98.1 97.7 Pulse 52 64 64 Resp 17 18 B/P (MAP) 113/69 (84) 154/81 (105) 154/81 Pulse Ox 98 98 98 O2 Delivery Room Air Room Air Room Air IRENA RENE MD Jun 28, 2017 09:42
--- NOTE | 2017-06-28 11:55 | RAD ---
VQ SCAN CLINICAL INDICATION: shortness of breath/chest pain for one week TECHNIQUE: Following the inhalation of approximately 11.0 mCi of xenon-133, planar lung images were performed in multiple projections. Subsequently, following the intravenous administration of 6 mCi Tc-99m MAA, planar lung images were also obtained in multiple projections. PRIOR STUDIES: No prior studies CORRELATIVE STUDIES: CT chest from 06/26/2017 FINDINGS: The ventilation scan demonstrates appropriate distribution of the xenon and washout without retention to suggest COPD changes. No large wedge-shaped perfusion defects extending to the periphery. Bilateral small perfusion defects along the posterior aspects of the bilateral lungs likely attenuation from overlying soft tissue. IMPRESSION: Very low probability of PE on this VQ scan.
[2017-06-28 12:29] VITALS: BP 146/81
--- NOTE | 2017-06-28 12:41 | PDOC ---
PULMONARY PROGRESS NOTES Subjective NO FURTHER CP Vitals Vital Signs Date Time Temp Pulse Resp B/P (MAP) Pulse Ox O2 Delivery O2 Flow Rate FiO2 06/28/17 12:29 97.7 70 18 146/81 (102) 97 Room Air 97.7 General: Alert, No acute distress Lungs: Clear Cardiovascular: S1 Abdomen: Soft Neuro Exam: Alert Extremities: No Edema Skin: Warm Labs Laboratory Tests Test 06/26/17 13:20 06/26/17 13:51 06/27/17 03:55 06/27/17 07:40 White Blood Count 7.7 x10^3/uL (4.0-11.0) 7.4 x10^3/uL (4.0-11.0) Red Blood Count 5.06 x10^6/uL (4.30-5.70) 4.75 x10^6/uL (4.30-5.70) Hemoglobin 15.4 g/dL (13.0-17.5) 14.7 g/dL (13.0-17.5) Hematocrit 45.8 % (39.0-53.0) 42.8 % (39.0-53.0) Mean Corpuscular Volume 91 fL (79-100) 90 fL (79-100) Mean Corpuscular Hemoglobin 30 pg (25-35) 31 pg (25-35) Mean Corpuscular Hemoglobin Concent 34 g/dL (31-37) 34 g/dL (31-37) Red Cell Distribution Width 13.1 % (11.5-14.5) 13.2 % (11.5-14.5) Platelet Count 240 x10^3/uL (140-400) 223 x10^3/uL (140-400) Neutrophils (%) (Auto) 55 % (31-73) 47 % (31-73) Lymphocytes (%) (Auto) 32 % (24-48) 36 % (24-48) Monocytes (%) (Auto) 8 % (0-9) 10 % (0-9) Eosinophils (%) (Auto) 4 % (0-3) 6 % (0-3) Basophils (%) (Auto) 1 % (0-3) 1 % (0-3) Neutrophils # (Auto) 4.2 x10^3uL (1.8-7.7) 3.5 x10^3uL (1.8-7.7) Lymphocytes # (Auto) 2.4 x10^3/uL (1.0-4.8) 2.6 x10^3/uL (1.0-4.8) Monocytes # (Auto) 0.6 x10^3/uL (0.0-1.1) 0.7 x10^3/uL (0.0-1.1) Eosinophils # (Auto) 0.3 x10^3/uL (0.0-0.7) 0.5 x10^3/uL (0.0-0.7) Basophils # (Auto) 0.1 x10^3/uL (0.0-0.2) 0.1 x10^3/uL (0.0-0.2) Prothrombin Time 13.0 SEC (11.7-14.0) 13.5 SEC (11.7-14.0) Prothromb Time International Ratio 1.0 (0.8-1.1) 1.1 (0.8-1.1) Sodium Level 140 mmol/L (136-145) 141 mmol/L (136-145) Potassium Level 3.9 mmol/L (3.5-5.1) 3.7 mmol/L (3.5-5.1) Chloride Level 106 mmol/L (98-107) 107 mmol/L (98-107) Carbon Dioxide Level 26 mmol/L (21-32) 28 mmol/L (21-32) Anion Gap 8 (6-14) 6 (6-14) Blood Urea Nitrogen 12 mg/dL (8-26) 15 mg/dL (8-26) Creatinine 0.9 mg/dL (0.7-1.3) 0.9 mg/dL (0.7-1.3) Estimated GFR (Cockcroft-Gault) 89.3 89.3 BUN/Creatinine Ratio 13 (6-20) 17 (6-20) Glucose Level 103 mg/dL (70-99) 92 mg/dL (70-99) Calcium Level 9.5 mg/dL (8.5-10.1) 8.6 mg/dL (8.5-10.1) Total Bilirubin 0.4 mg/dL (0.2-1.0) 0.3 mg/dL (0.2-1.0) Aspartate Amino Transf (AST/SGOT) 31 U/L (15-37) 22 U/L (15-37) Alanine Aminotransferase (ALT/SGPT) 32 U/L (16-63) 28 U/L (16-63) Alkaline Phosphatase 73 U/L (46-116) 67 U/L (46-116) Total Protein 7.3 g/dL (6.4-8.2) 5.8 g/dL (6.4-8.2) Albumin 4.1 g/dL (3.4-5.0) 3.4 g/dL (3.4-5.0) Albumin/Globulin Ratio 1.3 (1.0-1.7) 1.4 (1.0-1.7) Bedside Troponin I 0.00 ng/ml (<0.08) Heparin Anti-Xa Act, Unfractionated 0.33 IU/mL (0.30-0.70) Troponin I Quantitative < 0.017 ng/mL (0.000-0.055) < 0.017 ng/mL (0.000-0.055) Test 06/27/17 09:45 06/28/17 04:35 Heparin Anti-Xa Act, Unfractionated 0.47 IU/mL (0.30-0.70) 0.38 IU/mL (0.30-0.70) White Blood Count 7.3 x10^3/uL (4.0-11.0) Red Blood Count 4.95 x10^6/uL (4.30-5.70) Hemoglobin 14.9 g/dL (13.0-17.5) Hematocrit 45.5 % (39.0-53.0) Mean Corpuscular Volume 92 fL (79-100) Mean Corpuscular Hemoglobin 30 pg (25-35) Mean Corpuscular Hemoglobin Concent 33 g/dL (31-37) Red Cell Distribution Width 13.1 % (11.5-14.5) Platelet Count 206 x10^3/uL (140-400) Prothrombin Time 14.5 SEC (11.7-14.0) Prothromb Time International Ratio 1.2 (0.8-1.1) Laboratory Tests Test 06/28/17 04:35 White Blood Count 7.3 x10^3/uL (4.0-11.0) Red Blood Count 4.95 x10^6/uL (4.30-5.70) Hemoglobin 14.9 g/dL (13.0-17.5) Hematocrit 45.5 % (39.0-53.0) Mean Corpuscular Volume 92 fL (79-100) Mean Corpuscular Hemoglobin 30 pg (25-35) Mean Corpuscular Hemoglobin Concent 33 g/dL (31-37) Red Cell Distribution Width 13.1 % (11.5-14.5) Platelet Count 206 x10^3/uL (140-400) Prothrombin Time 14.5 SEC (11.7-14.0) Prothromb Time International Ratio 1.2 (0.8-1.1) Heparin Anti-Xa Act, Unfractionated 0.38 IU/mL (0.30-0.70) Medications Active Scripts Medications Dose Route/Sig Max Daily Dose Days Date Category Pepcid (Famotidine) 20 Mg Tablet 20 Mg PO BID 06/26/17 Reported Proair Hfa Inhaler (Albuterol Sulfate) 8.5 Gm Hfa.aer.ad 1 Puff INH PRN Q6HRS PRN 12/02/16 Rx Amlodipine Besylate 5 Mg Tablet 5 Mg PO DAILY 11/30/15 Reported Impression . 1. Right sided CP POA, Resolved now. CT angiogram reviewed with ? thrombus in the right lower / RML pulmonary artery. (Not convincing by my review, suspect motion artifact. 2. No PE by VQ scan/ no DVT 3. History of tobacco use. 4. Hypertension. Plan . 1. DC anticoagulation, 2. Venous Dopplers were obtained, which were negative. 3. monitor for 24 hrs ARISTEO MARTINEZ MD Jun 28, 2017 12:41
[2017-06-28 15:00] VITALS: BP 131/75
[2017-06-28 19:00] VITALS: BP 138/80
[2017-06-28 23:00] VITALS: BP 129/78
[2017-06-29 03:00] VITALS: BP 120/77
[2017-06-29 04:25] LABS: INR 1.1 (0.8-1.1); PROTHROMBIN TIME PATIENT 13.9 SEC (11.7-14.0)
[2017-06-29 07:00] VITALS: BP 113/80
[2017-06-29] MEDS: FAMOTIDINE 20 MG TABLET. PO SCH (08:30)
[2017-06-29] MEDS: ACETAMINOPHEN 325 MG TABLET. PO PRN (08:30)
[2017-06-29 08:31] VITALS: BP 113/80
[2017-06-29] MEDS: amLODIPine BESYLATE 5 MG TABLET PO SCH (08:31)
--- NOTE | 2017-06-29 09:41 | PDOC ---
PROGRESS NOTES Subjective Subjective doing well ,no chest pain Objective Objective Vital Signs Date Time Temp Pulse Resp B/P (MAP) Pulse Ox O2 Delivery O2 Flow Rate FiO2 06/29/17 08:31 63 113/80 06/29/17 08:00 Room Air 06/29/17 07:00 98.1 18 96 98.1 Physical Exam Abdomen: Normal bowel sounds, Soft Heart: Regular rate, Normal S1, Normal S2 Extremities: No clubbing General: Alert HEENT: Atraumatic Lungs: Clear to auscultation MUSCULOSKELETAL: No deformity, No swelling Neck: Supple Neuro: Normal speech Psych/Mental Status: Mental status NL Skin: No breakdown Diagnosis Problem List Problems Medical Problems: (1) Chest pain Status: Acute (2) Pulmonary embolism Status: Acute Assessment Assessment Problems Medical Problems: (1) Chest pain Status: Acute (2) Pulmonary embolism Status: Acute FINAL IMPRESSION: 1. Right-sided chest pain. CT angiogram, possible evidence of pulmonary embolism. 2. History of smoking. 3. Hypertension. PLAN: spoke with pulmonary, No PE VQ scan low probability for PE venous Doppler legs- neg for DVT. d/amira iv heparin yesterday. appreciate pulmonary consult. d/c home today Problems: Plan Plan of Care Problems Medical Problems: (1) Chest pain Status: Acute (2) Pulmonary embolism Status: Acute Comment Review of Relevant I have reviewed the following items karthikeyan (where applicable) has been applied. Labs Laboratory Tests Test 06/29/17 03:55 Prothrombin Time 13.9 SEC (11.7-14.0) Prothromb Time International Ratio 1.1 (0.8-1.1) Heparin Anti-Xa Act, Unfractionated < 0.10 IU/mL (0.30-0.70) Vitals/I & O Vital Sign - Last 24 Hours 06/28/17 06/28/17 06/28/17 06/28/17 12:29 15:00 19:00 20:00 Temp 97.7 97.7 98.2 97.7 97.7 98.2 Pulse 70 57 61 Resp 18 18 18 B/P (MAP) 146/81 (102) 131/75 (93) 138/80 (99) Pulse Ox 97 97 96 O2 Delivery Room Air Room Air Room Air Room Air 06/28/17 06/29/17 06/29/17 06/29/17 23:00 03:00 07:00 08:00 Temp 98.2 97.5 98.1 98.2 97.5 98.1 Pulse 53 58 63 Resp 19 18 18 B/P (MAP) 129/78 (95) 120/77 (91) 113/80 (91) Pulse Ox 96 100 96 O2 Delivery Room Air Room Air Room Air Room Air 06/29/17 08:31 Pulse 63 B/P (MAP) 113/80 IRENA RENE MD Jun 29, 2017 09:41
--- NOTE | 2017-06-29 09:46 | PDOC ---
Provider Note Provider Note Discharge summary dictated. #[id number] IRENA RENE MD Jun 29, 2017 09:45
--- NOTE | 2017-06-29 11:47 | DS ---
DATE OF DISCHARGE: 06/29/2017 REASON FOR ADMISSION TO THE HOSPITAL: Right-sided chest pain. CONSULTATION: Dr. Bermudez. PROCEDURES DONE: 1. CT angiogram of the chest. 2. VQ scan of the lung. 3. Venous Doppler of lower extremities. COMPLICATIONS NOTED: None. HOSPITAL COURSE: The patient is a 51-year-old male with history of hypertension, is hard of hearing, had history of esophageal perforation 2 years ago, has been stable. He was complaining of right-sided chest pain. CT angiogram shows probable right lower lung pulmonary embolism. The patient was put on a heparin drip and seen by Dr. Bermudez, Pulmonology. The patient had a venous Doppler of lower extremities, was negative; had a VQ scan, was negative for pulmonary embolism. So it was thought to be a false positive and the patient was stopped on heparin drip, no more chest pain, he was feeling better. The patient was discharged. FINAL IMPRESSION: 1. Right side chest pain, no evidence of pulmonary embolism, initially low probability for pulmonary embolism, but it was ruled out. 2. Hypertension. 3. Hard of hearing. 4. History of spontaneous esophageal perforation 2-3 years back, resolved. No other problems noted. DISPOSITION: Home. DISCHARGE MEDICATIONS: See MRAD for discharge medications. Follow up in the office in 2 weeks. IRENA RENE MD DR: JULIO/jonathan JOB#: [id number] / [id number] DAVID
== END 2017-06-29 10:00 | disposition home or self-care (01) | DRG 206 ==
LOC: ER 13:08 → 5 NORTH 19:00
PROVIDERS: ADMIT Internal Medicine; ATTEND Internal Medicine
DX: M94.0 Chondrocostal junction syndrome [Tietze] (principal); I10 Essential (primary) hypertension; F32.9 Major depressive disorder, single episode, unspecified; H91.90 Unspecified hearing loss, unspecified ear; Z87.898 Personal history of other specified conditions; Z87.81 Personal history of (healed) traumatic fracture; Z87.891 Personal history of nicotine dependence; Z90.49 Acquired absence of other specified parts of digestive tract
CPT/HCPCS: 36415; 71010; 71275; 78582; 80053; 84484; 85025; 85027; 85520; 85610; 93005; 93970; 94250; 94640; 96374; 96375; A9540; A9558; J1644; J1885; J2270; J2405; J3010; J7030; J7613; Q9967; 99285-25

== ENCOUNTER 2017-11-08 15:44 | Inpatient (IN) | payer OTHER ==
[2017-11-08] MEDS: IPRATRPIUM/ALBUTEROL 0.5/2.5MG 3 ML NEBU. NEB ×2 (18:00→20:41)
[2017-11-08] MEDS: ENOXAPARIN 40 MG/0.4 ML SYRINGE. SQ (18:22)
[2017-11-08 19:23] LABS: ADD MAN DIFF? NO
[2017-11-08 19:33] LABS: BASO # 0.1 x10^3/uL (0.0-0.2); BASO % 1 % (0-3); EOS # 0.4 x10^3/uL (0.0-0.7); EOS % 4 % (0-3); HEMATOCRIT 44.2 % (39.0-53.0); HEMOGLOBIN 14.6 g/dL (13.0-17.5); LYMPH # 2.6 x10^3/uL (1.0-4.8); LYMPH % 27 % (24-48); MEAN CORPUSCULAR HEMOGLOBIN 29 pg (25-35); MEAN CORPUSCULAR HGB CONC 33 g/dL (31-37); MEAN CORPUSCULAR VOLUME 89 fL (79-100); MONO # 0.8 x10^3/uL (0.0-1.1); MONO % 9 % (0-9); NEUT # 5.7 x10^3uL (1.8-7.7); NEUT % 59 % (31-73); PLATELET COUNT 214 x10^3/uL (140-400); RED BLOOD COUNT 4.97 x10^6/uL (4.30-5.70); RED CELL DISTRIBUTION WIDTH 13.2 % (11.5-14.5); WHITE BLOOD COUNT 9.6 x10^3/uL (4.0-11.0)
[2017-11-08 19:48] LABS: BILIRUBIN,URINE NEGATIVE (NEG); CLARITY,URINE CLEAR; COLOR,URINE YELLOW; GLUCOSE,URINE NEGATIVE (NEG); INR 1.1 (0.8-1.1); NITRITE,URINE NEGATIVE (NEG); PROTEIN,URINE NEGATIVE (NEG-TRACE); PROTHROMBIN TIME PATIENT 13.3 SEC (11.7-14.0); UROBILINOGEN,URINE 0.2 mg/dL (0.2 mg/dL)
[2017-11-08 19:52] LABS: ALBUMIN 3.6 g/dL (3.4-5.0); ALBUMIN/GLOBULIN RATIO 1.2 (1.0-1.7); ALK PHOS 73 U/L (46-116); ALT (SGPT) 28 U/L (16-63); ANION GAP 11 (6-14); AST (SGOT) 22 U/L (15-37); BLOOD UREA NITROGEN 16 mg/dL (8-26); BUN/CREATININE RATIO 20 (6-20); CARBON DIOXIDE 25 mmol/L (21-32); CHLORIDE 106 mmol/L (98-107); CREATININE 0.8 mg/dL (0.7-1.3); GFR 102.3; GLUCOSE 109 mg/dL (70-99); MAGNESIUM 2.1 mg/dL (1.8-2.4); POTASSIUM 3.8 mmol/L (3.5-5.1); SODIUM 142 mmol/L (136-145); TOTAL BILIRUBIN 0.2 mg/dL (0.2-1.0); TOTAL PROTEIN 6.7 g/dL (6.4-8.2)
[2017-11-08 19:59] LABS: TROPONINI < 0.017 ng/mL (0.000-0.055)
[2017-11-08 20:00] LABS: THYROID STIM HORMONE (TSH) 3.325 uIU/mL (0.358-3.74)
[2017-11-08 20:15] LABS: BACTERIA,URINE 0 /HPF (0-FEW); RBC,URINE 0 /HPF (0-2); WBC,URINE 0 /HPF (0-4)
[2017-11-08] MEDS: SIMVASTATIN 20 MG TABLET PO (20:54)
[2017-11-08] MEDS: LOSARTAN POTASSIUM 50 MG TABLET. PO (20:55)
[2017-11-09 06:22] LABS: ADD MAN DIFF? NO
[2017-11-09 06:51] LABS: ANION GAP 7 (6-14); BLOOD UREA NITROGEN 13 mg/dL (8-26); CALCIUM 8.3 mg/dL (8.5-10.1); CARBON DIOXIDE 24 mmol/L (21-32); CHLORIDE 111 mmol/L (98-107); CHOLESTEROL 145 mg/dL (0-200); CREATININE 0.7 mg/dL (0.7-1.3); GFR 119.4; GLUCOSE 105 mg/dL (70-99); HDLC 34 mg/dL (40-60); LDLC 90 mg/dL (0-100); NON-HDL CHOLESTEROL 111 mg/dL (0-129); POTASSIUM 4.1 mmol/L (3.5-5.1); SODIUM 142 mmol/L (136-145); TRIGLYCERIDES 105 mg/dL (0-150); VLDLC 21 mg/dL (0-40)
[2017-11-09 06:52] LABS: BASO # 0.1 x10^3/uL (0.0-0.2); BASO % 1 % (0-3); EOS # 0.4 x10^3/uL (0.0-0.7); EOS % 6 % (0-3); HEMOGLOBIN 14.5 g/dL (13.0-17.5); LYMPH # 1.7 x10^3/uL (1.0-4.8); LYMPH % 28 % (24-48); MEAN CORPUSCULAR HEMOGLOBIN 30 pg (25-35); MEAN CORPUSCULAR HGB CONC 34 g/dL (31-37); MEAN CORPUSCULAR VOLUME 89 fL (79-100); MONO # 0.6 x10^3/uL (0.0-1.1); MONO % 10 % (0-9); NEUT # 3.4 x10^3uL (1.8-7.7); NEUT % 55 % (31-73); PLATELET COUNT 209 x10^3/uL (140-400); RED BLOOD COUNT 4.83 x10^6/uL (4.30-5.70); RED CELL DISTRIBUTION WIDTH 13.3 % (11.5-14.5); WHITE BLOOD COUNT 6.2 x10^3/uL (4.0-11.0)
[2017-11-09 06:54] LABS: CHOLESTEROL/HDL RATIO 4.3
[2017-11-09 07:00] LABS: TROPONINI < 0.017 ng/mL (0.000-0.055)
[2017-11-09 07:02] LABS: THYROID STIM HORMONE (TSH) 1.165 uIU/mL (0.358-3.74)
[2017-11-09] MEDS: IPRATRPIUM/ALBUTEROL 0.5/2.5MG 3 ML NEBU. NEB ×4 (07:35→20:13)
[2017-11-09 10:41] LABS: INFLUENZA A PATIENT NEGATIVE (NEGATIVE); INFLUENZA B PATIENT NEGATIVE (NEGATIVE); OBC FLU VALID
[2017-11-09 13:25] LABS: D-DIMER < 0.27 ug/mlFEU (0.00-0.50)
[2017-11-09] MEDS: REGADENOSON 0.4 MG/5 ML DISP.SYRIN. IV (14:30)
[2017-11-09] MEDS ORDERED: REGADENOSON 0.4 MG/5 ML DISP.SYRIN. IV (15:00)
[2017-11-09] MEDS: ENOXAPARIN 40 MG/0.4 ML SYRINGE. SQ (17:33)
[2017-11-09] MEDS: ACETAMINOPHEN 325 MG TABLET. PO (17:34)
[2017-11-09] MEDS: SIMVASTATIN 20 MG TABLET PO (21:06)
[2017-11-09] MEDS: LOSARTAN POTASSIUM 50 MG TABLET. PO (21:06)
[2017-11-10] MEDS: IPRATRPIUM/ALBUTEROL 0.5/2.5MG 3 ML NEBU. NEB ×2 (07:59→11:35)
== END 2017-11-10 12:40 | disposition home or self-care (01) | DRG 392 ==
LOC: 5 SOUTH 15:44
DX: K21.9 Gastro-esophageal reflux disease without esophagitis (principal); H90.3 Sensorineural hearing loss, bilateral; E78.5 Hyperlipidemia, unspecified; F12.90 Cannabis use, unspecified, uncomplicated; J44.9 Chronic obstructive pulmonary disease, unspecified; I10 Essential (primary) hypertension; F32.9 Major depressive disorder, single episode, unspecified; M19.90 Unspecified osteoarthritis, unspecified site; Z90.49 Acquired absence of other specified parts of digestive tract; Z87.891 Personal history of nicotine dependence; Z82.49 Family history of ischemic heart disease and other diseases of the circulatory system; Z82.41 Family history of sudden cardiac death; Z87.11 Personal history of peptic ulcer disease; Z87.81 Personal history of (healed) traumatic fracture
CPT/HCPCS: 36415; 71046; 78452; 80048; 80053; 80061; 81001; 83735; 84443; 84484; 85025; 85379; 85610; 87804; 87804-59; 93005; 93017; 94640; 96374; 96375; 96376; A9500; J1650; J2785; J7620

== ENCOUNTER 2017-12-10 07:05 | Emergency (ER) | payer MEDICARE, OTHER | END 2017-12-10 07:47 | disposition home or self-care (01) | LOC: ER 07:47 | DX: J32.9 Chronic sinusitis, unspecified (principal); I10 Essential (primary) hypertension; F12.10 Cannabis abuse, uncomplicated | CPT/HCPCS: 99283 ==

== ENCOUNTER 2018-02-25 21:00 | Emergency (ER) | payer MEDICARE ==
[2018-02-25 21:44] LABS: ADD MAN DIFF? NO
[2018-02-25 21:48] LABS: BASO # 0.1 x10^3/uL (0.0-0.2); BASO % 1 % (0-3); EOS # 0.4 x10^3/uL (0.0-0.7); EOS % 5 % (0-3); HEMATOCRIT 46.4 % (39.0-53.0); HEMOGLOBIN 15.6 g/dL (13.0-17.5); LYMPH # 2.8 x10^3/uL (1.0-4.8); LYMPH % 33 % (24-48); MEAN CORPUSCULAR HEMOGLOBIN 30 pg (25-35); MEAN CORPUSCULAR HGB CONC 34 g/dL (31-37); MEAN CORPUSCULAR VOLUME 89 fL (79-100); MONO # 0.8 x10^3/uL (0.0-1.1); MONO % 9 % (0-9); NEUT # 4.3 x10^3uL (1.8-7.7); NEUT % 51 % (31-73); PLATELET COUNT 259 x10^3/uL (140-400); RED BLOOD COUNT 5.23 x10^6/uL (4.30-5.70); RED CELL DISTRIBUTION WIDTH 13.2 % (11.5-14.5); WHITE BLOOD COUNT 8.4 x10^3/uL (4.0-11.0)
[2018-02-25 21:56] LABS: ANION GAP 12 (6-14); BLOOD UREA NITROGEN 11 mg/dL (8-26); BUN/CREATININE RATIO 10 (6-20); CALCIUM 9.2 mg/dL (8.5-10.1); CARBON DIOXIDE 24 mmol/L (21-32); CHLORIDE 102 mmol/L (98-107); CREATININE 1.1 mg/dL (0.7-1.3); GFR 70.6; GLUCOSE 92 mg/dL (70-99); POTASSIUM 3.7 mmol/L (3.5-5.1); SODIUM 138 mmol/L (136-145)
[2018-02-25 22:02] LABS: ALBUMIN 4.4 g/dL (3.4-5.0); ALBUMIN/GLOBULIN RATIO 1.4 (1.0-1.7); ALK PHOS 86 U/L (46-116); ALT (SGPT) 36 U/L (16-63); AST (SGOT) 29 U/L (15-37); TOTAL BILIRUBIN 0.3 mg/dL (0.2-1.0); TOTAL PROTEIN 7.5 g/dL (6.4-8.2)
[2018-02-25 22:08] LABS: TROPONINI < 0.017 ng/mL (0.000-0.055)
== END 2018-02-25 23:01 | disposition home or self-care (01) ==
LOC: ER 21:00
DX: R42 Dizziness and giddiness (principal); R06.02 Shortness of breath; K21.9 Gastro-esophageal reflux disease without esophagitis; I10 Essential (primary) hypertension; F12.10 Cannabis abuse, uncomplicated
CPT/HCPCS: 36415; 70450; 71046; 80053; 84484; 85025; 93005; 99285-25

== ENCOUNTER → 2018-07-31 | Day surgery (SDC) | payer MEDICARE, OTHER ==
[~2018-07-31] MED LIST changes: -AMLO5TAB2 PO; +AMLO5TAB7 PO; +AMOX1TAB61 PO; +FAMO-63 PO; +FLUT9.9S NS; +IV RINGERS,LACTATED 1000ML 1,000 ML IV SCH; +LIDOCAINE 1% PF 2 ML VIAL. ID PRN; +LOSA50TA7 PO; +MIDAZOLAM HCL/PF 2 MG/2 ML VIAL. IV PRN; +OMEP20CA9 PO; +PROM5SYR2 PO; +PROPOFOL 20 ML IV ONE; +SIMV20TA3 PO; +VENTOLIN HFA18 GM INH; +fentaNYL PF VIAL 100 MCG/2 ML VIAL IV PRN
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
[2018-07-31 10:36] VITALS: BP 151/73
--- NOTE | 2018-08-01 16:12 | PATHOLOGY ---
[facility] Accession Number: [id number] . 01 Material submitted: . TRANSVERSE COLON POLYP . 01 Clinical history: . Screening . 02 Diagnosis: Colon biopsy, transverse colon polyp: - Tubular adenoma. . (JP:vjm;08/01/2018) AGA/08/01/2018 . 02 Comment: There is no high grade dysplasia or evidence of malignancy. . (JPM:vjm;08/01/2018) . 02 Electronically signed: . Maninder Reed MD, Pathologist NPI- [id number] . 01 Gross description: . Received in formalin labeled "Helder Valero, transverse colon polyp," is a single segment of gibbons soft tissue measuring 0.5 cm in maximum dimension. The specimen is entirely submitted in cassette A1. (TSD; 07/31/2018) TOB/TOB . 02 Pathologist provided ICD-10: D12.3 . 02 CPT . 966181 Specimen Comment: A courtesy copy of this report has been sent to Specimen Comment: [phone], . Specimen Comment: Report sent to / DR RENE Specimen Comment: A duplicate report has been generated due to demographic updates. Performed at: 01 [facility] [address], [place] [id number] MD Winston Groves MD Phone: [phone] Performed at: 02 [facility] [address] [place], [place] [id number] MD Maninder Reed MD Phone: [phone]
== END | disposition home or self-care (01) ==
LOC: ENDOS 07:45
PROVIDERS: ATTEND Internal Medicine Gastroenterology
DX: Z12.11 Encounter for screening for malignant neoplasm of colon (principal); D12.3 Benign neoplasm of transverse colon; I10 Essential (primary) hypertension; K72.10 Chronic hepatic failure without coma; M19.90 Unspecified osteoarthritis, unspecified site; F32.9 Major depressive disorder, single episode, unspecified; K21.9 Gastro-esophageal reflux disease without esophagitis; F41.9 Anxiety disorder, unspecified; Z87.891 Personal history of nicotine dependence; Z79.899 Other long term (current) drug therapy; Z98.890 Other specified postprocedural states
CPT/HCPCS: 45385; 88305; J2704; 45380

== ENCOUNTER 2018-10-20 13:04 | Emergency (ER) | payer OTHER ==
[~2018-10-20] VITALS: Ht 162.6 cm; Wt 74.8 kg
[~2018-10-20 13:04] MED LIST changes: +ALBU2.5V8 INH; -IV RINGERS,LACTATED 1000ML 1,000 ML IV SCH; -LIDOCAINE 1% PF 2 ML VIAL. ID PRN; +LOSA-73 PO; -LOSA50TA7 PO; -MIDAZOLAM HCL/PF 2 MG/2 ML VIAL. IV PRN; -PROAIR HFA8.5 GM INH; -PROPOFOL 20 ML IV ONE; -fentaNYL PF VIAL 100 MCG/2 ML VIAL IV PRN
[2018-10-20] MEDS ORDERED: IPRATRPIUM/ALBUTEROL 0.5/2.5MG 3 ML NEBU. NEB ONE (16:15)
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
[2018-10-20 16:35] LABS: BASO # 0.1 x10^3/uL (0.0-0.2); BASO % 1 % (0-3); EOS # 0.2 x10^3/uL (0.0-0.7); EOS % 3 % (0-3); HEMATOCRIT 46.4 % (39.0-53.0); HEMOGLOBIN 15.6 g/dL (13.0-17.5); LYMPH # 1.8 x10^3/uL (1.0-4.8); LYMPH % 25 % (24-48); MEAN CORPUSCULAR HEMOGLOBIN 30 pg (25-35); MEAN CORPUSCULAR HGB CONC 34 g/dL (31-37); MEAN CORPUSCULAR VOLUME 88 fL (79-100); MONO # 0.9 x10^3/uL (0.0-1.1); MONO % 12 % (0-9); NEUT # 4.2 x10^3uL (1.8-7.7); NEUT % 59 % (31-73); PLATELET COUNT 252 x10^3/uL (140-400); RED BLOOD COUNT 5.26 x10^6/uL (4.30-5.70); RED CELL DISTRIBUTION WIDTH 13.2 % (11.5-14.5); WHITE BLOOD COUNT 7.1 x10^3/uL (4.0-11.0)
[2018-10-20 16:48] LABS: CALCIUM 9.3 mg/dL (8.5-10.1); CREATININE 0.9 mg/dL (0.7-1.3); POTASSIUM 3.7 mmol/L (3.5-5.1)
[2018-10-20 16:53] LABS: ALBUMIN 4.4 g/dL (3.4-5.0); ALBUMIN/GLOBULIN RATIO 1.4 (1.0-1.7); TOTAL BILIRUBIN 0.4 mg/dL (0.2-1.0); TOTAL PROTEIN 7.6 g/dL (6.4-8.2)
[2018-10-20] MEDS ORDERED: methylPREDNISolone SOD SUCC PF 125 MG/2 ML VIAL. IV ONE (17:15)
[2018-10-20] MEDS ORDERED: ALBU2.5V8 INH (17:51)
[2018-10-20] MEDS ORDERED: PRED50TA PO (17:51)
[2018-10-20 18:02] VITALS: BP 143/76
--- NOTE | 2018-10-21 08:52 | RAD ---
CHEST PA LATERAL Clinical indications: cough, wheeze COMPARISON: February 25, 2018. Findings: Chronic elevation of the right hemidiaphragm is seen. Chronic scarring is seen within the left lung base. No new lung infiltrate or pleural effusion or pulmonary edema or lung mass or pneumothorax is seen. Mild cardiomegaly is seen which is stable. The pulmonary vasculature, mediastinum and both philip are unremarkable. The osseous structures appear intact. Impression: No new radiographic abnormality is seen. Electronically signed by: Sharif Cordova MD (10/21/2018 8:48 AM) [facility]
--- NOTE | 2018-10-21 10:16 | EKG ---
[facility] [address] [place] [address] Test Date: 2018-10-20 Test Time: 16:05:31 Pat Name: KILO LARSON Department: Room: Gender: M Manager Finance: : 1965 Requested By: JAM COLLIER Order Number: [id number] Reading MD: Measurements Intervals [place] Rate: 82 P: 26 CO: 148 QRS: 36 QRSD: 78 T: 8 QT: 364 QTc: 428 Interpretive Statements SINUS RHYTHM NON SPECIFIC ST DEPRESSION BORDERLINE ECG No previous ECG available for comparison
== END 2018-10-20 18:04 | disposition home or self-care (01) ==
LOC: ER 13:04
DX: J40 Bronchitis, not specified as acute or chronic (principal); I10 Essential (primary) hypertension
CPT/HCPCS: 36415; 71046; 80053; 82553; 84484; 85025; 93005; 94640; 96374; 99284; J2930; J7620

== ENCOUNTER 2018-11-11 21:04 | Emergency (ER) | payer OTHER ==
[~2018-11-11] VITALS: Ht 165.1 cm; Wt 81.6 kg
[~2018-11-11 21:04] MED LIST changes: +AMLO5TAB10 PO; -AMLO5TAB7 PO; +PRED50TA PO
[2018-11-11 21:21] VITALS: BP 125/77
[2018-11-11] MEDS ORDERED: ALBU2.5V8 INH (21:26)
[2018-11-11] MEDS ORDERED: METH4TAB2 PO (21:26)
--- NOTE | 2018-11-11 21:26 | PHYS DOC ---
Past Medical History Past Medical History: Hypertension Additional Past Medical Histor: Cervical vertebra fracture,intracranial hemorrhage,zygomatic fracture,HEPC (KING BRYAN OCCUPATIONAL THERAPY ASSIST) Past Surgical History: Cholecystectomy, Other Additional Past Surgical Histo: Gastrostomy 06/09 (KING [employer]YAN OCCUPATIONAL THERAPY ASSIST) Alcohol Use: Occasionally Drug Use: Marijuana (KING BRYAN APRN) Adult General Chief Complaint Chief Complaint: COUGH HPI HPI Patient is a 52 year old male who presents with shortness of air, cough and chest tightness for the last 2 weeks. He states he gets his doctor which gave him a breathing machine, albuterol nebulizers, inhaler and cough medication. Patient states he is diagnosed with bronchitis. Patient is complaining of the remaining symptoms of shortness of air and cough. ([employer]YAN OCCUPATIONAL THERAPY ASSIST) Review of Systems Review of Systems Constitutional: Denies fever or chills [] Eyes: Denies change in visual acuity, redness, or eye pain [] HENT: Denies nasal congestion or sore throat [] Respiratory: cough or shortness of breath [] Cardiovascular: No additional information not addressed in HPI [] GI: Denies abdominal pain, nausea, vomiting, bloody stools or diarrhea [] : Denies dysuria or hematuria [] Musculoskeletal: Denies back pain or joint pain [] Integument: Denies rash or skin lesions [] Neurologic: Denies headache, focal weakness or sensory changes [] All other systems were reviewed and found to be within normal limits, except as documented in this note. (KING BRYAN APRN) Current Medications Current Medications Current Medications Medications (Trade) Dose Ordered Sig/Rosalia Start Time Stop Time Status Last Admin Dose Admin Albuterol/ Ipratropium (Duoneb) 3 ml 1X ONCE 11/11/18 22:00 11/11/18 22:00 DC 11/11/18 21:42 3 ML Prednisone (Prednisone) 50 mg 1X ONCE 11/11/18 22:00 11/11/18 22:00 DC (FAVIAN TITUS MD) Allergies Allergies Allergies Coded Allergies Type Severity Reaction Last Updated Verified No Known Drug Allergies 07/31/18 No (FAVIAN TITUS MD) Physical Exam Physical Exam Constitutional: Well developed, well nourished, no acute distress, non-toxic appearance. [] HENT: Normocephalic, atraumatic, bilateral external ears normal, oropharynx moist, no oral exudates, nose normal. [] Eyes: PERRLA, EOMI, conjunctiva normal, no discharge. [] Neck: Normal range of motion, no tenderness, supple, no stridor. [] Cardiovascular:Heart rate regular rhythm, no murmur [] Lungs & Thorax: Bilateral breath sounds clear to auscultation [] Abdomen: Bowel sounds normal, soft, no tenderness, no masses, no pulsatile masses. [] Skin: Warm, dry, no erythema, no rash. [] Back: No tenderness, no CVA tenderness. [] Extremities: No tenderness, no cyanosis, no clubbing, ROM intact, no edema. [] Neurologic: Alert and oriented X 3, normal motor function, normal sensory function, no focal deficits noted. [] Psychologic: Affect normal, judgement normal, mood normal. Normal physical exam[] (KING BRYAN APRN) Current Patient Data Vital Signs Vital Signs Date Time Temp Pulse Resp B/P (MAP) Pulse Ox O2 Delivery O2 Flow Rate FiO2 11/11/18 21:41 96 Room Air 11/11/18 21:21 97.7 88 18 125/77 (93) 97.7 (FAVIAN TITUS MD) EKG EKG [] (KING BRYAN APRN) Radiology/Procedures Radiology/Procedures [] (KING BRYAN APRN) Course & Med Decision Making Course & Med Decision Making Patient is a 52 year old male who presents with shortness of air, cough and chest tightness for the last 2 weeks. He states he gets his doctor which gave him a breathing machine, albuterol nebulizers, inhaler and cough medication. Patient states he is diagnosed with bronchitis. Patient is complaining of the remaining symptoms of shortness of air and cough. She states he took a breathing treatment and cough medicine before he came to the ED. Patient is alert and oriented. Afebrile. Speaks in full clear sentences. In no respiratory distress. Skin pink warm and dry. Mucous membranes moist. Patient denies chest pain, dizziness, abdominal pain, nausea, vomiting, diarrhea, fever. Lungs are clear to auscultation in all lobes. Abdomen soft and nontender. Bilateral tympanic membranes are pearly white. Throat is red but not swollen and there are no exudates. Vital signs are within normal limits. Patient is 98% on room air and respirations are 18. Patient is ordered prednisone and DuoNeb in the ED. Patient states he feels better after receiving the DuoNeb. Patient is sent home on prednisone and a pro-air inhaler. Patient to call his doctor tomorrow for follow-up care. (KING BRYAN APRN) Course & Med Decision Making Staff Physician Addendum: I was working in the ER during the course of this patient's visit. I was available for consultation as needed, but I was not directly involved in the care of this patient. (FAVIAN TITUS MD) Dragon Disclaimer Dragon Disclaimer This electronic medical record was generated, in whole or in part, using a voice recognition dictation system. (KING BRYAN APRN) Departure Departure Impression: Primary Impression: Bronchitis Disposition: HOME, SELF-CARE Condition: STABLE Referrals: IRENA RENE MD (PCP) Patient Instructions: Bronchitis Additional Instructions: Follow up with doctor tomorrow. Take medications as prescribed. Scripts Albuterol Sulfate (Proair Hfa) 8.5 Gm Hfa.aer.ad 1 PUFF INH PRN Q6HRS PRN for SHORTNESS OF BREATH, #1 INHALER Prov: KING BRYAN APRN 11/11/18 Methylprednisolone (MEDROL) 4 Mg Tab.ds.pk 1 PKG PO UD, #1 PKG Prov: KING BRYAN APRN 11/11/18 KING BRYAN APRN Nov 11, 2018 21:26 FAVIAN TITUS MD Nov 13, 2018 00:43
[2018-11-11] MEDS ORDERED: predniSONE 20 MG TABLET PO ONE (22:00)
[2018-11-11] MEDS ORDERED: IPRATRPIUM/ALBUTEROL 0.5/2.5MG 3 ML NEBU. NEB ONE (22:00)
== END 2018-11-11 21:56 | disposition home or self-care (01) ==
LOC: ER 21:04
DX: J40 Bronchitis, not specified as acute or chronic (principal); I10 Essential (primary) hypertension
CPT/HCPCS: 94640; 99283; J7620

== ENCOUNTER → 2019-03-11 | Outpatient (CLI) | payer OTHER ==
[~2019-03-11] MED LIST changes: +METH4TAB2 PO; +OMEP20CA10 PO; -OMEP20CA9 PO
--- NOTE | 2019-03-11 17:21 | KCIC ---
Three-view right knee study Clinical indications: Acute right anterior knee pain. FINDINGS: No acute fracture or dislocation or lytic process is seen. Old healed distal right femur fracture is seen. Degenerative chondrocalcinosis of the medial and lateral menisci are seen. There is mild degenerative joint space narrowing of the medial tibiofemoral joint compartment. No significant degenerative spurring of the medial or lateral tibial femoral joint compartments is seen. There is a small spur of the posterior superior aspect of the patella. IMPRESSION: No acute fracture. Electronically signed by: Sharif Cordova MD (03/11/2019 5:18 PM) [place] [id number]
== END | disposition home or self-care (01) ==
LOC: US 13:15
PROVIDERS: ATTEND Internal Medicine Rheumatology
DX: M11.261 Other chondrocalcinosis, right knee (principal); M17.11 Unilateral primary osteoarthritis, right knee
CPT/HCPCS: 73562

== ENCOUNTER → 2019-07-05 | Outpatient (CLI) | payer OTHER ==
--- NOTE | 2019-07-05 14:38 | RAD ---
EXAM: Chest, 2 views. HISTORY: Chest pain. COMPARISON: 10/20/2018 FINDINGS: 2 views of the chest are obtained. There is no infiltrate, pleural effusion or pneumothorax. The heart is normal in size. There is stable lateral left pleural thickening likely due to extrapleural fat. IMPRESSION: No acute pulmonary finding. Electronically signed by: Renetta Dixon MD (07/05/2019 2:35 PM) [id number]
== END | disposition home or self-care (01) ==
LOC: RAD 14:12
PROVIDERS: ATTEND Internal Medicine
DX: J94.8 Other specified pleural conditions (principal)
CPT/HCPCS: 71046

== ENCOUNTER 2020-11-23 19:20 | Emergency (ER) | payer OTHER ==
[~2020-11-23] VITALS: Ht 162.6 cm; Wt 85.0 kg
[~2020-11-23 19:20] MED LIST changes: +AMLO-186 PO; -AMLO5TAB10 PO; -OMEP20CA10 PO; +OMEP20CA16 PO; +SIMV20TA18 PO; -SIMV20TA3 PO
[2020-11-23 20:02] VITALS: BP 167/108
[2020-11-23] MEDS ORDERED: DIPH,PERTUSS(ACELL),TET VAC/PF 0.5 ML SYRINGE. VAX IM ONE (20:45)
[2020-11-23] MEDS ORDERED: LIDOCAINE WITH 8.4% SOD BICARB 3 ML DISP.SYRIN. INJ ONE (20:45)
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
== END 2020-11-23 21:35 | disposition home or self-care (01) ==
LOC: ER 19:20
DX: S61.411A Laceration without foreign body of right hand, initial encounter (principal); J45.909 Unspecified asthma, uncomplicated; I10 Essential (primary) hypertension; F12.90 Cannabis use, unspecified, uncomplicated; F10.10 Alcohol abuse, uncomplicated; Z90.49 Acquired absence of other specified parts of digestive tract; Z90.89 Acquired absence of other organs; Z98.890 Other specified postprocedural states; W26.8XXA Contact with other sharp object(s), not elsewhere classified, initial encounter; Y93.89 Activity, other specified; Y92.89 Other specified places as the place of occurrence of the external cause; Y99.8 Other external cause status
CPT/HCPCS: 12002; 90471; 90715; 99283; J3490

== ENCOUNTER 2021-01-29 11:13 | Emergency (ER) | payer OTHER ==
[~2021-01-29] VITALS: Ht 162.6 cm; Wt 75.0 kg
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
[2021-01-29] MEDS ORDERED: CYCL5TAB PO (11:44)
[2021-01-29 11:50] VITALS: BP 123/87
--- NOTE | 2021-01-29 12:13 | RAD ---
Site ID: [id number] EXAMINATION: XR LUMBAR SPINE 2-3V. HISTORY: 55 years Male Reason: LOW BACK PAIN / Spl. Instructions: / History: . . COMPARISON: None. FINDINGS: There is straightening of the spine curvature around the thoracolumbar junction may relate to muscle spasm. There the alignment of the posterior spinal line is preserved. The vertebral body heights are preserved disc heights are also preserved. There are small anterior osteophytes at multiple levels. N o posterior osteophytes. IMPRESSION: Mild degenerative changes. Straightening of the spine curvature around the thoracolumbar junction may relate to muscle spasm. Electronically signed by: Dereck Todd MD (01/29/2021 12:11 PM) [id number]
== END 2021-01-29 13:10 | disposition home or self-care (01) ==
LOC: ER 11:13
DX: M54.5 Low back pain (principal); G89.11 Acute pain due to trauma; J45.909 Unspecified asthma, uncomplicated; I10 Essential (primary) hypertension; Z90.49 Acquired absence of other specified parts of digestive tract; Z93.1 Gastrostomy status; V89.2XXA Person injured in unspecified motor-vehicle accident, traffic, initial encounter; Y93.89 Activity, other specified; Y92.488 Other paved roadways as the place of occurrence of the external cause; Y99.8 Other external cause status
CPT/HCPCS: 72100; 99283

== ENCOUNTER 2021-09-14 05:56 | Emergency (ER) | payer MEDICARE, OTHER ==
[~2021-09-14] VITALS: Ht 162.6 cm; Wt 80.0 kg
[~2021-09-14 05:56] MED LIST changes: +CYCL5TAB PO
--- NOTE | 2021-09-14 06:09 | PHYS DOC ---
Past Medical History Past Medical History: Asthma, Hypertension Additional Past Medical Histor: Cervical vertebra fracture,intracranial hemorrhage,zygomatic fracture,HEPC Past Surgical History: Cholecystectomy, Other Additional Past Surgical Histo: Gastrostomy 06/09 Smoking Status: Never Smoker Alcohol Use: Heavy Drug Use: Marijuana General Adult HPI: HPI: Patient is a 55 year old male who presents with several weeks of bilateral foot pain. He mostly describes plantar pain. He does describe some burning sensation. He notes pain mostly when he ambulates and bears weight. He denies any trauma or injury. No swelling, no redness, no open wounds. No fevers or chills. No motor weakness. He recently saw his primary care physician for this, he was prescribed a medication, though he is unable to articulate with any certainty whatsoever what this medication is. He has a follow-up appointment scheduled in several weeks with his PCP. He denies any acute changes today. He has not taken any [id number] medicines for this pain. He has not changed any of his foot wear, he is currently wearing flat flip-flop type sandals he denies chest pain or dyspnea. Denies abdominal pain. Denies any other acute complaints. Review of Systems: Review of Systems: Constitutional: Denies fever or chills. [] Respiratory: Denies cough or shortness of breath. [] Cardiovascular: Denies chest pain or edema. [] GI: Denies abdominal pain, nausea, vomiting Musculoskeletal: Denies back pain or joint pain. Lateral plantar foot pain. Integument: Denies rash. No wounds, no swelling, no redness. Neurologic: Denies headache, focal weakness or sensory changes. [] Psychiatric: Denies depression or anxiety. [] Heart Score: C/O Chest Pain: No Risk Factors: Risk Factors: DM, Current or recent (<one month) smoker, HTN, HLP, family history of CAD, obesity. Risk Scores: Score 0 - 3: 2.5% MACE over next 6 weeks - Discharge Home Score 4 - 6: 20.3% MACE over next 6 weeks - Admit for Clinical Observation Score 7 - 10: 72.7% MACE over next 6 weeks - Early Invasive Strategies Allergies: Allergies: Allergies Coded Allergies Type Severity Reaction Last Updated Verified No Known Drug Allergies 07/31/18 No Physical Exam: PE: Constitutional: Well developed, well nourished, no acute distress, non-toxic appearance. [] HENT: Normocephalic, atraumatic, Cardiovascular: He is well-perfused appearing. He has +2 dorsalis pedis and +2 posterior tibial pulses bilaterally. Cap refill is brisk. No peripheral edema. Lungs & Thorax: Respirations are nonlabored Skin: Warm, dry, no erythema, no rash. There is no soft tissue swelling, warmth, erythema or rash of his lower extremities or feet. Extremities: Evidence of deformity, no edema. +2 dorsalis pedis and +2 posterior tibial pulses bilaterally. No calf tenderness. He does have some tenderness in bilateral plantar fascia insertion, at his heel. No open wounds, no rash. Sensation is grossly intact. No tenderness or deformity of the bilateral Achilles tendon areas. Full range of motion actively and passively with plantar flexion and dorsiflexion, eversion and inversion of both feet. No ankle tenderness. Neurologic: Alert and oriented X 3, normal motor function, normal sensory function, no focal deficits noted. [] Psychologic: Affect is flat, he is cooperative [] EKG: EKG: [] Radiology/Procedures: Radiology/Procedures: [] Course & Med Decision Making: Course & Med Decision Making I explained that he needs to go home and read about the medications he was prescribed for this pain by his primary care physician. I suspect it is possible that he was given a medication for neuropathy. The patient has reported history of "prediabetes." He reports that the medication he was was prescribed is to be taken at night. I listed off the names of multiple neuropathic pain medications, and he not recognize any of these, he is unable to find what medications he was prescribed in his phone. I have no access to his clinic record. I told him he may wish to discuss orthotics or wear more form fitting, comfortable, supportive cushioned shoes. I discussed the differential diagnosis with him. It is possible he may also have some element of plantar fasciitis. I discussed home care instructions for that. He may take [id number] Tylenol or ibuprofen as needed. No indication for emergent imaging, labs or invasive exams at this time. I have declined to prescribe any medications for him, since I am not sure what he has been prescribed for home use. He is comfortable with this plan. Strict return precautions are given. Zac Disclaimer: Zac Disclaimer: This electronic medical record was generated, in whole or in part, using a voice recognition dictation system. Departure Departure Impression: Primary Impression: Bilateral foot pain Disposition: HOME / SELF CARE / HOMELESS Condition: STABLE Referrals: UNKNOWN PCP NAME (PCP) Patient Instructions: Pain, Neuropathic, Plantar Fasciitis Additional Instructions: You may take [id number] Tylenol or ibuprofen for pain. You should make sure you wear well fitted, cushioned/padded shoes. Please make sure you check to see what your doctor has prescribed you for this pain. You may also have neuropathy, so make sure you discuss this with Dr. Todd. Please reach out to him to discuss this further. Return if you are acutely injured, if you develop any skin redness, swelling, fever of 100.4 or higher, or for any other acute concerns. KRISTEN BALDERAS DO Sep 14, 2021 06:09
[2021-09-14 07:00] VITALS: BP 171/77
== END 2021-09-14 07:00 | disposition home or self-care (01) ==
LOC: ER 05:56
DX: M79.672 Pain in left foot (principal); M79.671 Pain in right foot; J45.909 Unspecified asthma, uncomplicated; I10 Essential (primary) hypertension
CPT/HCPCS: 99282

== ENCOUNTER → 2021-10-14 | Outpatient (CLI) | payer MEDICARE ==
[2021-09-14 07:00] VITALS: BP 171/77
--- NOTE | 2021-10-14 13:13 | RAD ---
Bilateral lower extremity arterial duplex ultrasound 10/14/2021 INDICATION: Peripheral vascular disease. Diabetes. COMPARISON STUDY: None. Discussion: Ultrasound evaluation of the major arteries of the bilateral extremities was performed in cluding color Doppler imaging spectral analysis. The bilateral common femoral, superficial femoral, popliteal, posterior tibial, anterior tibial, isaura jose d, and dorsalis pedis arteries are patent. Normal waveform morphologies and velocities are seen th roughout the major arteries of the bilateral lower extremities. No focal occlusion is identified. No aneurysms identified. No other focal sonographic abnormality is identified. IMPRESSION: Normal sonographic appearance of the major arteries of the bilateral lower extremities Electronically signed by: Ron Mendiola MD (10/14/2021 1:11 PM) [id number]
== END ==
LOC: US 10:11
PROVIDERS: ATTEND Internal Medicine
DX: I73.9 Peripheral vascular disease, unspecified (principal)
CPT/HCPCS: 93925

== ENCOUNTER 2021-12-09 10:12 | Emergency (ER) | payer MEDICARE, OTHER ==
[~2021-12-09] VITALS: Ht 162.6 cm; Wt 90.0 kg
[2021-12-09 10:27] VITALS: BP 190/96
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
[2021-12-09] MEDS ORDERED: DEXAMETHASONE 4 MG TABLET PO ONE (11:00)
[2021-12-09] MEDS ORDERED: LIDOCAINE (700MG/PATCH) PATCH. TD ONE (11:00)
[2021-12-09] MEDS ORDERED: IBUPROFEN 200 MG TABLET. PO ONE (11:00)
--- NOTE | 2021-12-09 11:15 | RAD ---
EXAM: Lumbar spine CT without contrast. HISTORY: Pain. TECHNIQUE: Computed tomographic images of the lumbar spine were obtained without contrast. Multiplana r reformatting was performed. *One or more of the following individualized dose reduction techniques were utilized for this examina tion: 1. Automated exposure control. 2. Adjustment of the mA and/or kV according to patient size. 3. Use of iterative reconstruction technique. COMPARISON: None. FINDINGS: There is mild lumbar levoscoliosis. There is 2 mm retrolisthesis of L5 on S1. There is mult ilevel endplate remodeling. There is a tiny bone island within L4. There is no suspicious osseous les ion. There is no acute or subacute fracture. There is incidental sigmoid diverticulosis. There is deg enerative spurring involving the sacroiliac joints. The bilateral L1 transverse processes are inciden tally can gently nonfused. There is slight angulation of the cortex of the right greater than left L2 transverse processes which is also likely developmental rather than due to healed fractures. At L1-L2, there is no stenosis. At L2-L3, there is a mild disc bulge. There is mild right foraminal stenosis. At L3-L4, there is a mild disc bulge and endplate remodeling. There is mild bilateral foraminal steno sis. There is mild central canal stenosis. At L4-L5, there is a mild disc bulge and endplate remodeling. There is mild left facet arthropathy. T here is mild bilateral foraminal stenosis. At L5-S1, there is a mild disc bulge. There is mild bilateral facet arthropathy. There is mild left f oraminal stenosis. IMPRESSION: 1. Mild multilevel degenerative change involving the lumbar spine, described above. 2. No acute osseous finding. Electronically signed by: Renetta Dixon MD (12/09/2021 11:13 AM) [id number]
[2021-12-09] MEDS ORDERED: CYCL5TAB PO (11:26)
[2021-12-09] MEDS ORDERED: IBUP-1007 PO (11:26)
== END 2021-12-09 11:53 | disposition home or self-care (01) ==
LOC: ER 10:12
DX: M54.50 Low back pain, unspecified (principal); J45.909 Unspecified asthma, uncomplicated; I10 Essential (primary) hypertension; Z90.49 Acquired absence of other specified parts of digestive tract
CPT/HCPCS: 72131; 99284-25